=== PATIENT | male | born 1960 | race Caucasian/White ===

== ENCOUNTER → 2020-11-06 09:34 | Outpatient (CLI) | payer OTHER, SELFPAY ==
--- NOTE | ~2020-11-06 | MR_ITS ---
EXAMINATION: MR foot RT wo/w con DATE: 11/06/2020 11:14 INDICATION: Mononeuropathy with right foot pain. TECHNIQUE: Magnetic resonance imaging (MRI) of the right fore/mid foot was performed without and with 18 mL Multihance intravenous contrast. Sequences included axial, sagittal and coronal T1-weighted FS E, sagittal fluid sensitive FSE STIR, axial and coronal [id number] FS FSE, axial T1-weighted FS FSE a nd postcontrast axial, sagittal and coronal [id number] FS FSE. COMPARISON: None FINDINGS: Hallux valgus with mild bunion with mild cystic and hypertrophic change at the dorsal medial aspect o f the head of the first metatarsal. Bone alignment is otherwise normal. No fracture or pathologic mar row replacing process. Mild osteoarthritis at the first metatarsophalangeal joint. Mild marrow edema and enhancement at the plantar aspect of the medial cuneiform which could be related to mild osteoart hritis at the first tarsal metatarsal joint or small erosion at the insertion of a slip of the distal peroneus longus tendon. Otherwise normal bone marrow signal throughout. No fracture or pathologic ma rrow replacing process. The stabilizing ligaments of the medial and lateral ankle as well as the Lisf ranc ligament complex are normal. Small amount of fluid at the intermetatarsal bursa between the head s of the first and second metatarsals consistent with mild bursitis small amount of fluid extending a long the peroneal tendon sheath distal to the level of the lateral malleolus consistent with mild ten osynovitis. And the flexor and extensor tendons of the foot and ankle are otherwise normal. No muscul ar atrophy of abnormal muscle signal of the intrinsic musculature in the forefoot. Nonspecific edema at Kager's fat pad. 2.6 x 1.9 x 0.7 cm ganglion cyst at the posterior aspect of the ankle. Plantar ap oneurosis is normal. IMPRESSION: 1. Mild peroneal tenosynovitis which is in relatively close proximity to the marker indicating the si te of maximal pain is positioned overlying the cuboid at the lateral midfoot. No other etiology ident ified for reported lateral right foot pain. 2. Mild hallux valgus with bunion and mild osteoarthritis of the first metatarsophalangeal joint. 3. Mild intermetatarsal bursitis between the heads of the first and second metatarsals. 4. Nonspecific edema at Kager's fat pad at the posterior calf. 5. Focal marrow edema at the plantar aspect of the medial cuneiform which could be related to mild os teoarthritis at the first tarsal metatarsal joint or an erosion at the insertion of a slip of the per oneus longus tendon. Reviewed, dictated and finalized at location A. IMPRESSION: 1. Mild peroneal tenosynovitis which is in relatively close proximity to the ma rker indicating the site of maximal pain is positioned overlying the cuboid at the lateral midfoot. No other etiology identified for reported lateral right fo ot pain. 2. Mild hallux valgus with bunion and mild osteoarthritis of the first metatars ophalangeal joint. 3. Mild intermetatarsal bursitis between the heads of the first and second meta tarsals. 4. Nonspecific edema at Kager's fat pad at the posterior calf. 5. Focal marrow edema at the plantar aspect of the medial cuneiform which could be related to mild osteoarthritis at the first tarsal metatarsal joint or an e rosion at the insertion of a slip of the peroneus longus tendon.
[2020-11-06 10:33] LABS: Estimated Glomerular Filt Rate > 60
== END ==
PROVIDERS: PCP Family Medicine; Visit Provider Podiatrist Foot & Ankle Surgery
DX: M79.671 Pain in right foot (principal); G57.81 Other specified mononeuropathies of right lower limb; G57.61 Lesion of plantar nerve, right lower limb; M71.21 Synovial cyst of popliteal space [Baker], right knee; M65.871 Other synovitis and tenosynovitis, right ankle and foot
CPT/HCPCS: 73720; A9577

== ENCOUNTER 2023-01-30 07:42 | Outpatient (CLI) | payer OTHER, SELFPAY ==
--- NOTE | ~2023-01-30 | MR_ITS ---
MRI of the lumbar spine Clinical History: Stenosis Technique: Axial T2-weighted images, and sagittal T1-weighted, T2-weighted, and T2 fat-sat images wer e acquired. Findings: There is posterior fusion hardware extending from L4 through L5, with bilateral rods and tr anspedicular screws present. There is associated interbody fusion devices at the L4-L5 and L5-S1 disc spaces. Laminectomy defects present at L5. No acute fracture or subluxation evident. No suspicious b one marrow signal abnormality seen. At L1-L2, there is no disc bulge or herniation. No spinal canal stenosis or neural foraminal narrowin g. At L2-L3, there is minimal disc bulge. No spinal canal stenosis or neural foraminal narrowing. L3-L4, there is mild disc bulge and moderate to advanced facet arthropathy. No maritza central canal st enosis. There is minimal left neural foraminal narrowing, and mild to moderate right neural foraminal narrowing. At L4-L5, there is no disc bulge or herniation. No central canal stenosis. There is mild bilateral ne ural foraminal narrowing. At L5-S1, there is no disc bulge or herniation. No central canal stenosis. There is mild bilateral ne ural foraminal narrowing. Paravertebral soft tissues are unremarkable aside from expected postoperative change. Impression: Posterior and interbody fusion from L4 through S1, as detailed above. Mild degenerative spondylosis, as above. Reviewed, dictated and finalized at [facility]. Impression: Posterior and interbody fusion from L4 through S1, as detailed above. Mild degenerative spondylosis, as above.
== END 2023-01-30 07:43 ==
LOC: MICIMG 07:44
PROVIDERS: PCP Physician Assistant; Visit Provider Physician Assistant
DX: M96.1 Postlaminectomy syndrome, not elsewhere classified (principal); M48.062 Spinal stenosis, lumbar region with neurogenic claudication; Z98.1 Arthrodesis status; M47.896 Other spondylosis, lumbar region
CPT/HCPCS: 72148

== ENCOUNTER 2023-01-30 07:46 | Outpatient (CLI) | payer OTHER, SELFPAY ==
--- NOTE | ~2023-01-30 | MR_ITS ---
MRI of the left shoulder Technique: Axial proton-density fat-sat images, coronal proton density fat-sat and T2 fat-sat images, and sagittal T1-weighted and T2 fat-sat images were acquired. Clinical History: Pain Findings: There is mild AC joint degenerative change. Coracoclavicular, coracoacromial, and coracohum eral ligaments appear intact. There is focal low-grade articular surface partial tear at the distal insertion of the posterior port ion of the supraspinatus tendon, with tear measuring approximately 6 x 7 mm in extent. There is mild tendinosis. Subscapularis tendon is intact with mild tendinosis. Tendon of the long head of the bicep s is intact. No definite labral tear identified. There is mild chondromalacia of the glenohumeral joint. No significant joint effusion seen. There is minimal fluid within the subacromial/subdeltoid bursa. No muscle atrophy or edema. Impression: 6 x 7 mm low-grade linear articular surface partial tear at the distal insertion of the posterior por tion of the supraspinatus tendon. Rotator cuff tendinosis. Minimal subacromial/subdeltoid bursitis. Reviewed, dictated and finalized at location . Impression: 6 x 7 mm low-grade linear articular surface partial tear at the distal insertio n of the posterior portion of the supraspinatus tendon. Rotator cuff tendinosis. Minimal subacromial/subdeltoid bursitis.
== END 2023-01-30 07:47 ==
LOC: MICIMG 07:47
DX: M25.512 Pain in left shoulder (principal); G89.29 Other chronic pain
CPT/HCPCS: 73221

== ENCOUNTER 2023-04-10 10:51 | Outpatient (CLI) | payer OTHER, SELFPAY ==
--- NOTE | ~2023-04-10 | MR_ITS ---
EXAMINATION: MR cervical spine wo con DATE: 04/10/2023 11:31 INDICATION: Left-sided cervical radiculopathy. TECHNIQUE: Magnetic resonance imaging (MRI) of the cervical spine was performed without intravenous c ontrast. COMPARISON: None FINDINGS: Bone alignment is normal. Vertebral body heights are normal. There is mildly decreased disc height at C5-C6 and moderately decreased disc height at C6-C7. The spinal cord signal intensity is n ormal. The following disc levels are specifically discussed: C2-C3: The disc does not extend beyond the endplate margin. There is no uncovertebral joint osteoarth ritis. There is severe bilateral facet joint osteoarthritis. There is mild bilateral neural foraminal stenosis. There is no central canal stenosis. C3-C4: The disc does not extend beyond the endplate margin. There is severe bilateral uncovertebral j oint osteoarthritis. There is severe right and moderate left facet joint osteoarthritis. There is mil d bilateral neural foraminal stenosis. There is no central canal stenosis. C4-C5: There is a central protrusion. There is moderate bilateral uncovertebral joint osteoarthritis. There is severe right and moderate left facet joint osteoarthritis. There is mild bilateral neural f oraminal stenosis. There is mild central canal stenosis. C5-C6: The disc is bulging. There is severe bilateral uncovertebral joint osteoarthritis. There is mi ld right and moderate left facet joint osteoarthritis. There is mild right and moderate left neural f oraminal stenosis. There is mild central canal stenosis with ventral indentation of the spinal cord. C6-C7: The disc is bulging with superimposed left central extrusion. There is severe bilateral uncove rtebral joint osteoarthritis. There is severe bilateral facet joint osteoarthritis. There is mild rig ht and severe left neural foraminal stenosis. There is mild central canal stenosis with ventral inden tation of the spinal cord. There is severe stenosis of left lateral recess. C7-T1: The disc does not extend beyond the endplate margin. There is no uncovertebral joint osteoarth ritis. There is severe bilateral facet joint osteoarthritis. There is mild bilateral neural foraminal stenosis. There is no central canal stenosis. IMPRESSION: 1. Severe spondylosis at C6-C7 and mild to moderate spondylosis at other levels. Reviewed, dictated and finalized at location A. [employer] IMPRESSION: 1. Severe spondylosis at C6-C7 and mild to moderate spondylosis at other levels .
== END 2023-04-10 10:52 ==
LOC: MICIMG 10:54
DX: M75.22 Bicipital tendinitis, left shoulder (principal); M47.22 Other spondylosis with radiculopathy, cervical region
CPT/HCPCS: 72141

== ENCOUNTER 2024-06-21 09:08 | Outpatient (CLI) | payer OTHER, SELFPAY ==
--- NOTE | ~2024-06-21 | MR_ITS ---
EXAMINATION: MR thoracic spine wo con DATE: 06/21/2024 09:54 INDICATION: Pain in thoracic spine. TECHNIQUE: Magnetic resonance imaging (MRI) of the thoracic spine was performed without intravenous c ontrast. COMPARISON: None FINDINGS: There is kyphosis of thoracic spine. There is chronic height loss of T5-T12 vertebral marissa s associated with Schmorl's nodes. There is mildly decreased disc height from T6-T7 through T9-T10. A t T4-T5, there is a central protrusion with mild central canal stenosis. At T6-T7, there is a left ce ntral protrusion with annular fissure, mild central canal stenosis, and ventral indentation of the sp inal cord. There is multilevel facet joint osteoarthritis, severe at a few levels. On the right, ther e is mild neural foraminal stenosis at T1-T2, T5-T6, and T8-T9. On the left, there is moderate neural foraminal stenosis at T1-T2 and mild neural foraminal stenosis at T2-T3, T7-T8, and T8-T9. The spina l cord signal intensity is normal. The conus medullaris is at T12. IMPRESSION: 1. Mild thoracic spondylosis. 2. Thoracic kyphosis. Reviewed, dictated and finalized at location A. OPERATOR
--- NOTE | ~2024-06-21 | MR_ITS ---
EXAMINATION: MR lumbar spine wo con DATE: 06/21/2024 10:04 INDICATION: Lumbago. TECHNIQUE: Magnetic resonance imaging (MRI) of the lumbar spine was performed without intravenous con trast. COMPARISON: Lumbar spine MRI 01/30/2023 FINDINGS: There is 10 degrees dextroscoliosis of lumbar spine. There is 3 mm anterolisthesis of L3 on L4. There are changes of anterior posterior fusion procedures from L4 to S1 with interbody devices a nd pedicle screws. There is mild chronic anterior wedging of T12 vertebral body. There is mildly decr eased disc height at L2-L3 and L3-L4. The distal spinal cord signal intensity is normal. The conus me dullaris is at T12. The following disc levels are specifically discussed: L1-L2: There is a central protrusion. There is mild bilateral facet joint osteoarthritis. There is no neural foraminal stenosis. There is mild central canal stenosis. L2-L3: The disc is bulging. There is mild bilateral facet joint osteoarthritis. There is mild bilater al neural foraminal stenosis. There is mild central canal stenosis. L3-L4: The disc is bulging and has an annular fissure. There is severe bilateral facet joint osteoart hritis. There is mild bilateral neural foraminal stenosis. There is mild central canal stenosis. L4-L5: There is moderate bilateral facet joint hypertrophy. There is mild right and moderate left aj ral foraminal stenosis. There is no central canal stenosis. L5-S1: There is mild bilateral facet joint hypertrophy. There is mild bilateral neural foraminal sten osis. There is no central canal stenosis. IMPRESSION: 1. Mild lumbar spondylosis, stable from 01/30/2023. 2. Anterior and posterior fusion procedures from L4 to S1. Reviewed, dictated and finalized at location A. [employer]
== END 2024-06-21 09:09 | disposition home or self-care (01) ==
LOC: MICIMG 09:10
PROVIDERS: PCP Internal Medicine; Visit Provider Nurse Practitioner Family
DX: M47.814 Spondylosis without myelopathy or radiculopathy, thoracic region (principal); M40.204 Unspecified kyphosis, thoracic region; Z98.1 Arthrodesis status
CPT/HCPCS: 72146; 72148

== ENCOUNTER 2024-09-20 08:26 | Emergency (ER) | payer OTHER, SELFPAY ==
--- NOTE | 2024-09-20 08:28 | ED.EXTPRO ---
HPI - Extremity Problem General Chief complaint: Extremity Problem,Nontraumatic Stated complaint: swelling in arm Time Seen by Provider: 09/20/24 08:28 Source: patient Mode of arrival: ambulatory Limitations: no limitations History of Present Illness HPI Narrative: Mr. Moreno is a 64-year-old male patient presenting to the clinic today with complaints of swelling in his left posterior arm since . He reports he had a Bhumi diabetic monitor on his left posterior arm to check for elevated blood sugars. States he is not diabetic however every time he goes to the doctor he has a spike in his blood sugar. They were doing this to monitor more closely to determine if he needs medications. He states night he woke up and his arm was in pain and the Arlene monitor went flat lined so he removed it. Area knotted, tender, red, and swollen-left posterior upper arm. He denies any fevers, chills, body aches. He denies any shortness of breath or chest pain. Related Data Allergies Allergy/AdvReac Type Severity Reaction Status Date / Time Penicillins Allergy Mild Hives Verified 09/20/24 08:46 rosuvastatin AdvReac Intermediate Joint Pain Verified 09/20/24 08:46 Review of Systems Review of Systems: Pertinent positives per HPI. Patient denies any fever, chills, rash, headache, visual changes, dizziness, cough, runny nose, sore throat, shortness of breath, chest pain, palpitations, nausea, vomiting, diarrhea, constipation, abdominal pain, or any urinary issues. [facility] Family History Family History Father Family history of diabetes mellitus in first degree relative Mother Family history of diabetes mellitus in first degree relative Other Diabetes mellitus Family history of cardiovascular disease Social History Social History Smoking status: Never smoker Alcohol intake: current Comments At the time of my signature, I reviewed and agree with the nursing past medical, surgical, social, and family history. There is no relevant family history pertinent to the patient complaint. Exam Narrative: General: Well-developed, well nourished, in no apparent distress Head: Normocephalic, atraumatic. Cardio: Regular rate and rhythm, s1 and s2 normal, no murmur appreciated. Resp: Clear to auscultation bilaterally, no rhonchi, rales, wheezing or rubs. Musculoskeletal: No deformity, redness, swelling, erythema, and tender to palpation over the left posterior upper arm-indurated area measuring approximately 3 cm x 3 cm, no drainage, grossly normal range of motion, muscle strength strong and equal, peripheral pulse strong, no cyanosis, normal gait and station Course Course Emergency Course: Portions of this record may have been created with voice recognition software. Level of Care: Express Care Visit Vital Signs Vital signs: Vital Signs Temperature 35.8 C L 09/20/24 08:36 Pulse Rate 62 09/20/24 08:36 Respiratory Rate 17 09/20/24 08:36 Blood Pressure 137/81 09/20/24 08:36 Pulse Oximetry 97 09/20/24 08:36 Oxygen Delivery Room Air 09/20/24 08:36 Temperature 35.8 C L 09/20/24 08:36 Pulse Rate 62 09/20/24 08:36 Respiratory Rate 17 09/20/24 08:36 Blood Pressure 137/81 09/20/24 08:36 Pulse Oximetry 97 09/20/24 08:36 Oxygen Delivery Room Air 09/20/24 08:36 Vital signs reviewed MDM - Extremity (Nontraumatic) MDM Narrative Medical decision making narrative: At the time of visit patient is resting comfortably on the exam table. Patient appears to be nontoxic. Plan: I suspect patient has left upper posterior arm cellulitis. Prescription for clindamycin was sent to the pharmacy. Supportive measures were discussed with the patient and they voiced understanding discharge instructions and agrees to treatment plan. Return precautions reviewed Differential Diagnosis Differential diagnosis: Likely herpes zoster, gout, cellulitis, superficial thrombophlebitis, deep venous thrombosis of upper extremity and other (Allergic reaction) Discharge Plan Discharge Clinical Impression: Cellulitis Qualifiers: Site of cellulitis: extremity Site of cellulitis of extremity: upper extremity Laterality: left Qualified Code(s): L03.114 - Cellulitis of left upper limb Patient Disposition: Home Condition: Stable Instructions: Antibiotic Form, Cellulitis (ED) Additional Instructions: Keep area clean and dry May take Tylenol/Motrin as needed for pain or fever Take clindamycin as prescribed May apply cool compress to the affected area to help alleviate pain and swelling Keep left upper arm elevated as much as possible Follow-up with your PCP in 3 days for a recheck Patient Language: Bulgarian Prescriptions: New clindamycin HCl [Cleocin HCl] 300 mg capsule 300 mg PO Q8H 7 Days Qty: 21 0RF Follow-up/Referrals: UNKNOWN,DOCTOR [Non-Staff] - Time of Disposition: 08:47 Quality NIHSS Nursing Documentation ED NIHSS nursing documentation: reviewed/agree
--- OUTSIDE RECORDS SUMMARY | 2024-09-20 08:32 | XMS_ITS | Encounter Summary ---
Author Organization [facility] Health Address [address] [place] [address] Care Team Providers Care Clam Shucking Machine Tender Name Role Phone Unavailable Primary Care Provider Unavailabl e Encounter Details Date Type Department Care Team (Late st Contact Info) Description 11/05/2019 Lab Requisition 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[employer] Gender Identity Not on file Sexual Orientation Not on file Occupation Industry Job Start Date Job End Date [employer] Not on file Not on file Not on file documented as of this encounter Plan of Treatment Not on file documented as of this encounter Procedures Procedure Name Priority Date/Time Associated Diagnosis Comments DERMATOPATHOLOGY Routine 11/04/2019 12:0 0 AM CDT documented in this encounter Results * DERMATOPATHOLOGY (11/04/2019 12:00 AM CDT) Case Report Dermatopathology Report Case: [id number] Authorizing Provider: Ashvin Smith MD Collected: 11/04/2019 12:00 AM Ordering Location: [facility] Derm[facility] Lab Received: 11/05/2019 11:57 AM Pathologist: Dunia Barajas MD Specimen: Skin, left chin 0 9:09 AM CDT DERMATOPATHOLOGY LABORATORY Final Diagnosis Specimen A. SKIN, left chin: DERMAL SCAR (L90.5) PRESENT AT MARGIN (see microscopic description) 0 9:09 AM CDT DERMATOPATHOLOGY LABORATORY Clinical History Recurrent cyst. Path#[id number]. Check margins 0 9:09 AM CDT DERMATOPATHOLOGY LABORATORY Gross Description Specimen A: Received is one formalin filled container labeled with the patient's name and designated left chin. The specimen consists of a 19x8x5 mm piece of skin, inked and bisected. 0 9:09 AM CDT DERMATOPATHOLOGY LABORATORY Microscopic Description Specimen A. SKIN, left chin: There are fibroblasts and collagen bundles oriented parallel to the skin surface with elongated blood vessels, some of which are oriented perpendicular to the skin surface. Scar is present at the base of the specimen. Additional deeper sections were obtained and reviewed. 0 9:09 AM CDT DERMATOPATHOLOGY LABORATORY Disclaimer An external and internal positive and negative controls are appropriate for the histochemical, immunohistochemical and immunofluorescence stain(s) in this case (if any), except where stated explicitly. The performance characteristics of the stain(s) cited in this report were developed and its performance characteristic determined by the Dermatopathology Laboratory at [facility], directed by Dr. Yasir Bond. These tests need not be, and therefore are not, approved by the [place] Food and Drug Administration. The tests are used for clinical purposes. Billing Codes Specimen Charges Stain Charges 96496 1 0 9:09 AM CDT DERMATOPATHOLOGY LABORATORY Embedded Images 0 9:09 AM CDT DERMATOPATHOLOGY LABORATORY Pathology/Cytolog y TISSUE SPECIMEN FROM SKIN / Unknown 11/04/2019 11/05/2019 11:57 AM CDT us Ashvin Smith MD LAB - PATHOLOGY/CYTOLOGY ORDER BEBETO Final Result DERMATOPATHOLOGY LABORATORY [facility] - Department of Dermatology Data Operations Director [place] [id number] [place] [address] documented in this encounter Visit Diagnoses Not on filedocumented in this encounter
--- OUTSIDE RECORDS SUMMARY | 2024-09-20 08:32 | XMS_ITS | Encounter Summary ---
Author Organization [facility] Health Address [address] [place] [address] Care Team Providers Care Chief Cardiopulmonary Technologist Name Role Phone Unavailable Primary Care Provider Unavailabl e Encounter Details Date Type Department Care Team (Late st Contact Info) Description 01/01/2022 Lab Requisition [facility] DermPath Lab [address] [place] [phone] Ashvin Smith MD [address] [place] [address] Social History Tobacco Use Types Packs/Day Years Used Date Smoking Tobacco: Never Alcohol Use Standard Drinks/Week Comments Yes 0 (1 standard drink = 0.6 oz pur e alcohol) Socially Sex and Gender Information Value Date Recorded Sex Assigned at Not on file 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 Gender Identity Not on file Sexual Orientation Not on file Occupation Industry Job Start Date Job End Date [place] Not on file Not on file Not on file documented as of this encounter Plan of Treatment Not on file documented as of this encounter Procedures Procedure Name Priority Date/Time Associated Diagnosis Comments DERMATOPATHOLOGY Routine 12/28/2021 3:33 AM CDT documented in this encounter Results * DERMATOPATHOLOGY (12/28/2021 3:33 AM CDT) Case Report Dermatopathology Report Case: [id number] Authorizing Provider: Ashvin Smith MD Collected: 12/28/2021 03:33 AM Ordering Location: [facility] DermPath Lab Received: 01/01/2022 06:44 AM Pathologist: Melissa Goldman MD Specimen: Skin, left post neck 2 4:46 PM CDT DERMATOPATHOLOGY LABORATORY Final Diagnosis Specimen A. 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 Path#[id number] 2 4:46 PM CDT DERMATOPATHOLOGY LABORATORY Gross Description Specimen A: Received is one formalin filled container labeled with the patient's name and designated left post neck. The specimen consists of a shave biopsy measuring 7x5x1 mm. Jar 0. 4:46 PM CDT DERMATOPATHOLOGY LABORATORY Microscopic Description Specimen A. SKIN, left post neck: There is a dome-shaped portion of skin with psoriasiform epidermal hyperplasia, compact hyperkeratosis, and fibrosis of the papillary dermis associated with a superficial perivascular lymphohistiocytic infiltrate. A focal erosion is present. Additional deeper sections were obtained and reviewed. 2 4:46 PM CDT DERMATOPATHOLOGY LABORATORY Disclaimer An external and internal positive and negative controls are appropriate for the histochemical, immunohistochemical and immunofluorescence stain(s) in this case (if any), except where stated explicitly. The performance characteristics of the stain(s) cited in this report were developed and its performance characteristic determined by the Dermatopathology Laboratory at [facility], directed by Dr. Yasir Bond. These tests need not be, and therefore are not, approved by the [place] Food and Drug Administration. The tests are used for clinical purposes. Billing Codes Specimen Charges Stain Charges 96401 1 2 4:46 PM CDT DERMATOPATHOLOGY LABORATORY Embedded Images 2 4:46 PM CDT DERMATOPATHOLOGY LABORATORY Pathology/Cytolo gy TISSUE SPECIMEN FROM SKIN / Unknown 12/28/2021 3:33 AM CDT 01/01/2022 6:44 AM CDT us Ashvin Smith MD LAB - PATHOLOGY/CYTOLOGY ORDER BEBETO Final Result DERMATOPATHOLOGY LABORATORY [facility] - Department of Dermatology [facility] [phone] documented in this encounter Visit Diagnoses Not on filedocumented in this encounter
--- OUTSIDE RECORDS SUMMARY | 2024-09-20 08:32 | XMS_ITS | Encounter Summary ---
Author Organization [facility] Address [address] [place] [address] Care Team Providers Care Bar Machine Operator Multiple Spindle Name Role Phone Conner Carter MD Primary Care Provider [phone] Juliano Prajapati MD Unavailable [phone] Sherwin Venegas MD Unavailable [phone] Stalin Escalante MD Unavailable [phone] Jayelen Negron PA-C Unavailable [phone] Peter Holt DO Primary Care Provider Glo Damon [facility] Primary Care Provid er Scott Tapia MD Primary Care Provider [phone] Encounter Details Date Type Department Care Team (Late st Contact Info) Description 03/17/[address] [facility] One Day Services [address] [id number] Conner Carter MD [address] [place] [address] Social History Tobacco Use Types Packs/Day Years Used Date Smoking Tobacco: Never Smokeless Tobacco: Never Alcohol Use Standard Drinks/Week Comments Yes 0 (1 standard drink = 0.6 oz pur e alcohol) socially AUDIT-C Answer Date Recorded Frequency of Alcohol Consumption Monthly or less 03/25/2018 Average Number of Drinks Not on file 11/14/2 018 Frequency of Binge Drinking Not on file 03/12 PHQ-2 Answer Date Recorded PHQ-2 Score - If the patient scores above 3, please move on to questions 3-9 0 12/30/2019 Sex and Gender Information Value Date Recorded Sex Assigned at Not on file Legal Sex Male 11:59 PM CDT Gender Identity Not on file Sexual Orientation Not on file COVID-19 Exposure Response Date Recorded In the last month, have you been in contact with someone who was confirmed or suspected to have Coronavirus / COVID-19? No / Unsure 03/17/2020 2:16 PM HONEY GRADER AND BLENDER documented as of this encounter Plan of Treatment Not on file documented as of this encounter Results * PRE-SURGICAL/PRE-PROCEDURE CORONAVIRUS (COVID 19) (03/21/2020 9:23 AM HONEY GRADER AND BLENDER) CORONAVIRUS SARS COV 2 PCR (RESP) NOT DETECTED NOT DETECTED 03/22/2020 5:55 PM HONEY GRADER AND BLENDER [facility] Comment: A Not Detected (negative) test result for this test means that SARS- CoV-2 RNA was not present in the specimen above the limit of detection. A negative result does not rule out the possibility of COVID-19 and should not be used as the sole basis for treatment or patient management decisions. If COVID-19 is still suspected, based on exposure history together with other clinical findings, re-testing should be considered in consultation with public health authorities. Laboratory test results should always be considered in the context of clinical observations and epidemiological data in making a final diagnosis and patient management decisions. Please review the Fact Sheets and FDA authorized labeling available for health care providers and patients using the following websites: https://www.[employer].Zomato/home/Covid-19/HCP/NAAT/fact-sheet2 https://www.[employer].Zomato/home/Covid-19/Patients/NAAT/ fact-sheet2 This test has been authorized by the FDA under an Emergency Use Authorization (EUA) for use by authorized laboratories. Due to the current public health emergency, [employer] is receiving a high volume of samples from a wide variety of swabs and media for COVID-19 testing. In order to serve patients during this public health crisis, samples from appropriate clinical sources are being tested. Negative test results derived from specimens received in non-commercially manufactured viral collection and transport media, or in media and sample collection kits not yet authorized by FDA for COVID-19 testing should be cautiously evaluated and the patient potentially subjected to extra precautions such as additional clinical monitoring, including collection of an additional specimen. Methodology: Nucleic Acid Amplification Test (NAAT) includes RT-PCR or TMA Additional information about COVID-19 can be found at the [employer] website: www.[employer].Zomato/Covid19. Test performed at [facility] [place] [id number] [place] [phone] Director: JOHN JOE DO,MPH FIRST TEST YES 03/21/2020 9:24 AM HONEY GRADER AND BLENDER [facility] EMPLOYED IN HEALTHCARE NO 03/21/2020 9:24 AM [facility] SYMPTOMATIC DEFINED BY CDC NO 03/21/2020 9:24 AM HONEY GRADER AND BLENDER [facility] DATE OF SYMPTOM ONSET UNKNOWN 03/21/2020 9:33 AM HONEY GRADER AND BLENDER [facility] HOSPITALIZATION STATUS NO 03/21/2020 9:24 AM HONEY GRADER AND BLENDER [facility] PATIENT IN ICU NO 03/21/2020 9:24 AM HONEY GRADER AND BLENDER [facility] RESIDENT OF [facility] NO 03/21/2020 9:24 AM [facility] NOT 03/21/2020 9:33 AM HONEY GRADER AND BLENDER [facility] PATIENT'S RACE WHITE OR 03/21/2020 9:24 AM HONEY GRADER AND BLENDER [facility] ETHNICITY NONHISPANIC 03/21/2020 9:24 AM HONEY GRADER AND BLENDER [facility] SOURCE (QST) NASOPHARYNGEAL SWAB 03/21/2020 9:24 AM [facility] NASOPHARYNGEAL SWAB / Unknown 03/21/2020 9:23 AM HONEY GRADER AND BLENDER Conner Carter MD MICROBIOLOGY - GENERAL ORDERA BLES Final Result [facility] [address] [place] [address], [facility] [address] [place] [address], documented in this encounter Visit Diagnoses Diagnosis Pre-op testing- Primary Preoperative examination, unspecified documented in this encounter Additional Health Concerns Infection Onset Date Last Indicated Resolved Time COVID-19 Rule Out 03/21/2020 03/21/2020 03/22/2020 5:56 PM HONEY GRADER AND BLENDER COVID-19 Rule Out 04/02/2020 04/02/2020 04/03/2020 1:46 PM HONEY GRADER AND BLENDER COVID-19 Rule Out 06/30/2020 06/30/2020 07/01/2020 9:21 AM HONEY GRADER AND BLENDER documented as of this encounter Care Teams Bar Machine Operator Multiple Spindle Relationship Specialty Start Date End Date Conner Carter MD PCP - General 06/25/16 10/01/21 Peter Holt DO [address] [place] [address] PCP - General FAMILY PRACTICE 10/02/21 08/17/23 Glo Damon, LICENSED LOAN OFFICER- [address] [place] [address] PCP - General Nurse Practitioner Family 08/18/2311/09 Scott Tapia MD [address] [facility] [address] [place] [address] PCP - General INTERNAL MEDICINE 11/28/23 Juliano Prajapati MD SURGERY 03/20/18 Sherwin Venegas MD [address] [place], [place] [phone] Referring Physician OTOLARYNGOLOGY 03/20/18 Stalin Escalante MD [address] [place] [phone] FINE CHEMICALS OPERATOR 03/20/18 Jayleen Negron, PAThiernoC [address] [place] [address] PHYSICIAN BOX TENDER 03/25/18 Dr. Tommie Perez GASTROENTEROLOGY 03/20/18 documented as of this encounter
--- OUTSIDE RECORDS SUMMARY | 2024-09-20 08:32 | XMS_ITS | Encounter Summary ---
Author Organization [facility] Address [address] [place] [address] Care Team Providers Care Head Of Operation And Logistics Name Role Phone Conner Carter MD Primary Care Provider [phone] Juliano Prajapati MD Unavailable [phone] Sherwin Venegas MD Unavailable [phone] Stalin Escalante MD Unavailable [phone] Jayleen Negron PA-C Unavailable [phone] Peter Holt DO Primary Care Provider Glo Damon [facility] Primary Care Provid er Scott Tapia MD Primary Care Provider [phone] Encounter Details Date Type Department Care Team (Late st Contact Info) Description 06/27/2020 Prep for Procedure [facility] One Day Services [address] [place], [place] [id number] [place] [address] [facility] [address] [place] [address] Social History Tobacco Use Types Packs/Day Years [...] have Coronavirus / COVID-19? No / Unsure 06/30/2020 12:00 PM DOUGHNUT ICER documented as of this encounter Plan of Treatment Not on file documented as of this encounter Results * MRSA SCREENING (06/30/2020 12:09 PM DOUGHNUT ICER) SPEC DESCRIPTION NASAL 06/30/2020 12:01 PM DOUGHNUT ICER [facility] SPECIAL REQUESTS NO SPECIAL REQUEST 06/30/2020 12:01 PM DOUGHNUT ICER [facility] CULTURE RESULT NO METHICILLIN RESISTANT STAPH AUREUS ISOLATED 07/01/2020 12:21 PM DOUGHNUT ICER [facility] SPECIMEN FROM INTERNAL NOSE / Unknown 06/30/2020 12:09 PM DOUGHNUT ICER 06/30/2020 12:10 PM DOUGHNUT ICER Bill Cornejo MD MICROBIOLOGY - GENERAL ORDERABLE S Final Result [facility] [address] [place] [address], * PRE-SURGICAL/PRE-PROCEDURE CORONAVIRUS (COVID 19) (06/30/2020 12:09 PM DOUGHNUT ICER) CORONAVIRUS SARS COV 2 PCR (RESP) NOT DETECTED NOT DETECTED 07/01/2020 9:21 AM DOUGHNUT ICER [facility] Comment: A Not Detected (negative) test result [...] providers and patients using the following websites: https://www.[employer].InsuranceLibrary.com/home/Covid-19/HCP/QuestIVD/fact- sheet.html https://www.[employer].InsuranceLibrary.com/home/Covid-19/Patients/ QuestIVD/fact-sheet.html This test has been authorized by the FDA under an Emergency Use Authorization (EUA) for use by authorized laboratories. Due to the current public health emergency, [employer] is receiving a high volume of samples [...] about COVID-19 can be found at the [employer] website: www.[employer].InsuranceLibrary.com/Covid19. Test performed at [facility] [place] [address] [place] [address] Director: JOHN JOE DO,MPH FIRST TEST UNKNOWN 06/30/2020 12:01 PM [facility] EMPLOYED IN HEALTHCARE NO 06/30/2020 12:01 PM [facility] SYMPTOMATIC DEFINED BY CDC NO 06/30/2020 12:01 PM [facility] DATE OF SYMPTOM ONSET UNKNOWN 06/30/2020 12:18 PM [facility] HOSPITALIZATION STATUS NO 06/30/2020 12:01 PM [facility] PATIENT IN ICU NO 06/30/2020 12:01 PM DOUGHNUT ICER [facility] RESIDENT OF [facility] NO 06/30/2020 12:01 PM DOUGHNUT ICER [facility] UNKNOWN 06/30/2020 12:18 PM DOUGHNUT ICER [facility] PATIENT'S RACE WHITE OR 06/30/2020 12:01 PM DOUGHNUT ICER [facility] ETHNICITY NONHISPANIC 06/30/2020 12:01 PM DOUGHNUT ICER [facility] SOURCE (QST) NASOPHARYNGEAL SWAB 06/30/2020 12:01 PM DOUGHNUT ICER [facility] NASOPHARYNGEAL SWAB / Unknown 06/30/2020 12:09 PM DOUGHNUT ICER us Bill Cornejo MD MICROBIOLOGY - GENERAL ORDERABLE S Final Result Performing Organization Address City/State/[facility] Co de Phone Number [facility] [address] [place] [address], [place] [phone] [facility] [id number] [place] [address], documented in this encounter Visit Diagnoses Diagnosis Preop testing- Primary Preoperative examination, unspecified documented in this encounter Additional Health Concerns Infection Onset Date Last Indicated Resolved Time COVID-19 Rule Out 06/30/2020 06/30/2020 07/01/2020 9:21 AM DOUGHNUT ICER documented as of this encounter Care Teams Head Of Operation And Logistics Relationship Specialty Start Date End Date Conner Carter MD PCP - General 06/25/16 10/01/21 Peter Holt DO [address] [place] [address] PCP - General FAMILY PRACTICE 10/02/21 08/17/23 Glo Damon FNP- [address] [place] [address] PCP - General Nurse Practitioner Family 08/18/2311/09 Scott Tapia MD [address] [facility] [address] [place] [address] PCP - General INTERNAL MEDICINE 11/28/23 Juliano Prajapati MD SURGERY 03/20/18 Sherwin Venegas MD [address] [place], [place] [address] Referring Physician OTOLARYNGOLOGY 03/20/18 Stalin Escalante MD [address] [place] [address] SUSTAINABILITY PROJECT MANAGER 03/20/18 Jayleen Negron, PA-C [address] [place] [address] PHYSICIAN FISH AND GAME CLUB MANAGER 03/25/18 Dr. Tommie Perez GASTROENTEROLOGY 03/20/18 documented as of this encounter
--- OUTSIDE RECORDS SUMMARY | 2024-09-20 08:32 | XMS_ITS | Encounter Summary ---
Author Organization [facility] Address [address] [place] [address] Care Team Providers Care Supplies Packer Name Role Phone Conner Carter MD Primary Care Provider [phone] Juliano Prajapati MD Unavailable [phone] Sherwin Venegas MD Unavailable [phone] Stalin Escalatne MD Unavailable [phone] Jayleen Negron PA-C Unavailable [phone] Peter Holt DO Primary Care Provider Glo Damon [facility] Primary Care Provid er Scott Tapia MD Primary Care Provider [phone] Encounter Details Date Type Department Care Team (Late st Contact Info) Description 2020 Prep for Procedure [facility] One Day Services [address] [place] [address] Tommie Perez MD [address] [id number] Social History Tobacco Use Types Packs/Day Years Used Date Smoking Tobacco: Never Smokeless Tobacco: Never Alcohol Use Standard Drinks/Week Comments Yes 0 (1 standard drink = 0.6 oz pur e alcohol) socially AUDIT-C Answer Date Recorded Frequency of Alcohol Consumption Monthly or less 03/25/2018 Average Number of Drinks Not on file 018 Frequency of Binge Drinking Not on [...] have Coronavirus / COVID-19? No / Unsure 04/03/2020 11:45 AM ROUNDER AND BACKER documented as of this encounter Plan of Treatment Not on file documented as of this encounter Results * PRE-SURGICAL/PRE-PROCEDURE CORONAVIRUS (COVID 19) (04/02/2020 9:18 AM ROUNDER AND BACKER) CORONAVIRUS SARS COV 2 PCR (RESP) NOT DETECTED NOT DETECTED 04/03/2020 1:46 PM ROUNDER AND BACKER [facility] Comment: A [...] providers and patients using the following websites: https://www.[employer] Holding/home/Covid-19/HCP/QuestIVD/fact- sheet.html https://www.[employer]/home/Covid-19/Patients/ QuestIVD/fact-sheet.html This test has been authorized by the FDA under an Emergency Use Authorization (EUA) for use by authorized laboratories. Due to the current public health emergency, [employer] is receiving a high volume of samples [...] about COVID-19 can be found at the [employer] website: www.[employer]/Covid19. Test performed at [facility] [place] [address] [facility] [place] [address] Director: JOHN JOE DO,MPH FIRST TEST NO 04/02/2020 9:16 AM [facility] EMPLOYED IN HEALTHCARE NO 04/02/2020 9:16 AM [facility] SYMPTOMATIC DEFINED BY CDC NO 04/02/2020 9:16 AM [facility] DATE OF SYMPTOM ONSET UNKNOWN 04/02/2020 9:41 AM [facility] HOSPITALIZATION STATUS NO 04/02/2020 9:16 AM [facility] PATIENT IN ICU NO 04/02/2020 9:16 AM [facility] RESIDENT OF [facility] NO 04/02/2020 9:16 AM [facility] NOT 04/02/2020 9:41 AM [facility] PATIENT'S RACE WHITE OR 04/02/2020 9:16 AM [facility] ETHNICITY NONHISPANIC 04/02/2020 9:16 AM [facility] SOURCE (QST) NASOPHARYNGEAL SWAB 04/02/2020 9:16 AM [facility] NASOPHARYNGEAL SWAB / Unknown 04/02/2020 9:18 AM ROUNDER AND BACKER Tommie ePrez MD MICROBIOLOGY - GENERAL ORDERABLE S Final Result [facility] [address] [place] [address], [employer] [facility] [address] [place] [address], documented in this encounter Visit Diagnoses Diagnosis Preop testing- Primary Preoperative examination, unspecified documented in this encounter Additional Health Concerns Infection Onset Date Last Indicated Resolved Time COVID-19 Rule Out 04/02/2020 04/02/2020 04/03/2020 1:46 PM ROUNDER AND BACKER COVID-19 Rule Out 06/30/2020 06/30/2020 07/01/2020 9:21 AM ROUNDER AND BACKER documented as of this encounter Care Teams Supplies Packer Relationship Specialty Start Date End Date Conner Carter MD PCP - General 06/25/16 10/01/21 Peter Holt DO [address] [place] [phone] PCP - General FAMILY PRACTICE 10/02/21 08/17/23 Glo Damon, [facility]- [address] [place] [address] PCP - General Nurse Practitioner Family 08/18/2311/09 Scott Tapia MD [address] [place] [address] [address] [place] [address] PCP - General INTERNAL MEDICINE 11/28/23 Juliano Prajapati MD SURGERY 03/20/18 Sherwin Venegas MD [address] [place] [address] Referring Physician OTOLARYNGOLOGY 03/20/18 Stalin Escalante MD [address] [place] [address] INSTITUTIONAL CUSTODIAN 03/20/18 Jayleen Negron PA-C [address] [place] [address] PHYSICIAN INFLATED BALL MOLDER 03/25/18 Dr. Tommie Perez GASTROENTEROLOGY 03/20/18 documented as of this encounter
--- OUTSIDE RECORDS SUMMARY | 2024-09-20 08:32 | XMS_ITS | Data Portability ---
Author Organization [place] - [facility] OFFICE Address [address] [place] [address] Care Team Providers Care Financial Operations Analyst Name Role Phone KENZIENATALIE BARRETT Primary Care Provider Assessment No assessment recorded. Plan of Treatment Reminders Order Date Submit Date Provider Last Modified By Organization Details Last Modified Time Details Appointments ESTABLISH ED PATIENT DETAILED 2024 08:30A M Eliezer Tovar i, MD Not available Not available Not available Lab None recorded. Referral None recorded. Procedures None recorded. Surgeries None recorded. Imaging None recorded. Medication Orders Crestor 10 mg tablet 2023 024 [facility], [address], [address], 11/08/2023 10:52:46 Patient TargetsNo targets recorded. Patient Instructions Encounter Date Encounter Id Patient Instructions Last Modified By Organization Details Last Modified Time 11/08/2023 [id number] Weight loss 20 pounds Exercise advised Low cholesterol diet advised Low sodium diet advised. [email or web address] Not available 11/08/2023 10:52:47 12/06/2023 [id number] Exercise advised Low cholesterol diet advised Low sodium diet advised. [email or web address] Not available 12/06/2023 09:20:02 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 None Reported. Results Created Date Observation Date Name Description Value Unit Range Abnormal Flag Note LastModifiedBy Organization Detail LastModifiedTime 11/11/19 24 09/10/2023 lindy parkgr am No observ ation record ed. Not Available 2023 10:26:48 11/11/19 24 07/19/2023 CT, angio gram, coron beata arter ies, w/ contr ast No observ ation record ed. Not Available 2023 10:30:30 11/29/19 24 11/25/2023 exerc ise stres s test No observ ation record ed. Not Available 2023 14:54:59 05/26/19 25 05/25/2024 elect alexei parkgr am No observ ation record ed. Not Available 2024 10:20:11 Result Notes None recorded. Problems Name Problem SNOMED Code Status Onset Date Resolution Date Notes Provider Name and Address Organization Details Recorded Time Benign hypertensio n 53070487 Active 2023 Vero Kaur null, [place] - [facility] 4 09:04:44 Obstructive sleep apnea of adult 2523116038026 Active 2023 Vero Kaur [place], [place] - [facility] 4 09:04:59 Family history of diabetes mellitus 356219407 Active 2023 Vero K[place] - [facility] 4 09:03:07 Lumbago with sciatica 376155668 Active 2023 Vero Mesto [place] - [facility] 4 09:03:08 Mixed hyperlipide denice 332226746 Active 2023 Vero Mesto [place] [facility] 4 09:04:54 Chronic low back pain 470704487 Active 2023 Vero Kaur [place] [facility] 4 09:04:49 Prostate specific antigen above reference range 401860308 Active 2023 Vero Millerto null[place] - [facility] 4 09:03:08 Hypothyroid ism 91028937 Active 2023 Vero [place] [facility] 4 09:04:52 Statin not tolerated 984688328 Active 2023 Vero [place] [facility] 4 09:03:08 Hypogonadis m 87448316 Active 2023 Vero Kaur [place], [place] - [facility] 4 09:03:08 Coronary arterioscle rosis 66507974 Active 2023 [facility], [facility] 4 09:03:08 Liver enzymes level above reference range 497621439 Active 2023 Pham Mes null, [facility] 4 09:03:08 Insulin resistance 270233562 Active 2023 Pham [facility], [facility] 4 09:03:08 Problem Notes None recorded. Procedures Surgical History None recorded. Imaging Results Imaging Date Name Status LastModified by Organization Details LastModified Time 09/10/2023 electrocardiogram completed Informa tion not available 11/11/2023 10:26:48 07/19/2023 CT, angiogram, coronary arteries, w/ contrast completed [email or web address] Information not available 11/11/2023 10:30:30 11/25/2023 [email or web address]ation not available 11/29/2023 14:54:59 05/25/2024 electrocardiogram completed [email or web address] Informa tion not available 05/26/2024 10:20:11 Procedure Notes None recorded. Medical Equipment None Reported. Allergies Allergen ID Allergen Name Allergen Category Reaction Reaction Severity Criticality Documentation Date Start Date Code Code System Note Provider Name and Address Organization Details Recorded Time 94398 Product containin g penicilli n (product) medicatio n rash Not available Not available 11/06/2023 76221 8001 [facility]ED [facility] 4 09:02:46 26242 mold extract medicatio n rash Not available Not available 11/06/2023 06202 8 RxNorm [facility], [facility] 4 09:02:46 56554 Product containin g 3-hydroxy -3-methyl glutaryl- coenzyme A reductase inhibitor (product) medicatio n myalgias (muscle pain) Not available Not available 11/06/2023 92008 009 SNOMED Pham [facility], [facility] 4 09:02:46 Medications Name Sig Start Date Stop Date Status Note LastModified by Organization Details LastModified Time metformin 500 mg tablet TAKE 1 TABLET BY MOUTH TWICE DAILY WITH MORNING & PM MEALS active Not Available Not Available No t Available anastrozole 1 mg tablet active Not Available Not Available Not Available potassium chloride ER 10 mEq capsule,ext ended release active Not Available Not Available Not Available clindamycin HCl 300 mg capsule TAKE 1 TABLET BY MOUTH FOUR TIMES DAILY 09/09 completed Not Available Not Available Not Available naltrexone 50 mg tablet TAKE 1 TABLET BY MOUTH DAILY FOR 18 DAYS active Not Available Not Available No t Available ondansetron HCl 4 mg tablet TAKE 1 CAPLET BY MOUTH EVERY 4-6 HOURS DAILY NEEDED. 09/09 completed Not Available Not Available Not Available metronidazo le 500 mg tablet TAKE 1 TABLET BY MOUTH TWICE DAILY UNTIL FINISHED. 09/09 completed Not Available Not Available Not Available levothyroxi ne 75 mcg tablet TAKE 1 TABLET BY MOUTH IN EVERY MORNING ON EMPTY STOMACH X 30 MINTUES active Not Available Not Available No t Available oxycodone-a cetaminophe n 5 mg-325 mg tablet 09/09 completed Not Available Not Available Not Available amitriptyli ne 10 mg tablet TAKE 2 TABLETS BY MOUTH ONCE DAILY active Not Available Not Available No t Available gemfibrozil 600 mg tablet active Not Available Not Available Not Available testosteron e cypionate 200 mg/mL intramuscul ar oil active Not Available Not Available Not Available oxycodone-a cetaminophe n 7.5 mg-325 mg tablet TAKE 1/2 - 1 TABLET BY MOUTH EVERY 4-6 H NEEDED PAIN, MAX 4 TABS PER DAY 09/09 completed Not Available Not Available Not Available methylpredn isolone 4 mg tablets in a dose pack TAKE 6 TABLETS BY MOUTH ON DAY 1 THEN DECREASE BY 1 TABLET EACH DAY UNTIL GONE 09/09 completed Not Available Not Available Not Available doxazosin 2 mg tablet 1 tablet daily active Not Available Not Available No t Available rosuvastati n 10 mg tablet TAKE 1 TABLET BY MOUTH ONCE DAILY active Not Available Not Available No t Available omega-3 acid ethyl esters 1 gram capsule 09/09 completed Not Available Not Available Not Available pregabalin 100 mg capsule TAKE 1 CAPSULE BY MOUTH ONCE DAILY IN THE MORNING AND 2 IN THE EVENING active Not Available Not Available No t Available chlorhexidi ne gluconate 0.12 % mouthwash RINSE MOUTH WITH 15ML (1 CAPFUL) FOR 30 SECONDS MORNING AND PM AFTER TOOTHBRUS GRISEL. EXPECTORA TE AFTER RINSING, DO NOT SWALLOW 09/09 completed Not Available Not Available Not Available magnesium 12/03 completed Not Available Not Available Not Available fenofibrate nanocrystal lized 48 mg tablet 1 tablet every other day active Not Available Not Available No t Available Metanx 2 mg-3 mg-35 mg tablet Take 1 tablet every day by oral route as directed. active Not Available Not Available No t Available Vascepa 1 gram capsule Take 1 capsule every day by oral route. active Not Available Not Available No t Available Magnesium (oxide/AA chelate) 150mg-2x daily active Not Available Not Available No t Available Trulicity 3 mg/0.5 mL subcutaneou s pen injector INJECT 3MG SUBCUTANE OUSLY ONCE EVERY WEEK 09/09 completed Not Available Not Available Not Available Zepbound 10 mg/0.5 mL subcutaneou s pen injector active Not Available Not Available Not Available Zepbound 5 mg/0.5 mL subcutaneou s pen injector active Not Available Not Available Not Available Zepbound 2.5 mg/0.5 mL subcutaneou s pen injector active Not Available Not Available Not Available Zepbound 15 mg/0.5 mL subcutaneou s pen injector active Not Available Not Available Not Available Zepbound 7.5 mg/0.5 mL subcutaneou s pen injector active Not Available Not Available Not Available Vitals Date Recorded Body height Body mass index (BMI) Body weight Heart rate Oxygen saturation Oxygen saturation in Arterial blood by Pulse oximetry Systolic blood pressure Diastolic blood pressure Provider Name and Address Organization Details Last Updated DateTime 4 177.8 cm 31 kg/m2 59178.9 5 g 51 /min 92 % 92 % 127 mm[Hg] 81 mm[Hg] Angela Knight [place] - [facility] 4 10:31:44 Date Recorded Body height Body mass index (BMI) Body weight Heart rate Oxygen saturation Oxygen saturation in Arterial blood by Pulse oximetry Systolic blood pressure Diastolic blood pressure Provider Name and Address Organization Details Last Updated DateTime 4 177.8 cm 30.9 kg/m2 13009.5 1 g 65 /min 98 % 98 % 142 mm[Hg] 82 mm[Hg] Aylin Marquez [facility] 4 09:04:49 Date Recorded Body height Body mass index (BMI) Body weight Heart rate Oxygen saturation Oxygen saturation in Arterial blood by Pulse oximetry Systolic blood pressure Diastolic blood pressure Provider Name and Address Organization Details Last Updated DateTime 5 177.8 cm 28.5 kg/m2 22550.4 4 g 60 /min 97 % 97 % 144 mm[Hg] 93 mm[Hg] Roslyn Dove [facility] 5 11:56:40 Social History Question Answer Notes LastModified by [employer] Details LastModified Time Tobacco Smoking Status Never Smoker Angela Eugene jansen [facility] 11/08/2023 10:29:08 What Is Your Relationship Status? esto Information not available 11/06/2023 Sex: Unknown Functional Status Question Answer Note LastModified by [employer] Details LastModified Time Do you use any illicit or recreational drugs? No Information not available 11/08/2023 What is your level of alcohol consumption? None Information not available 11/08/2023 Mental Status None recorded. Family History Relationship Description Onset Age of this Age Resolved Age Notes LastModified by Organization Details LastModified Time Father Diabetes mellitus 82 [email or web address] Not available 2023 09:09:34 Father Heart disease Not available 2023 10:23:32 Mother Diabetes mellitus 80 esto Not available 2023 09:09:46 Notes:irregular heart beat - father Medical History Condition Response Thyroid Disease Y High Cholesterol Y Sleep Apnea Y Hypertension Y Immunizations Vaccine Type Date Status Note Provider Nam e and Address Organization Details Recorded Time influenza, unspecified formulation 02/10/2020 completed Vero jansen [facility] 11/06/2023 09:03:14 Td(adult) unspecified formulation 05/12/2015 completed Vero jansen [facility] 11/06/2023 09:03:14 Past Encounters Encounter ID Performer Location Encounter Start Date Encounter Closed Date Diagnosis/Indication Diagnosis SNOMED-CT Code Diagnosis ICD10 Code Diagnosis Note [id number] Eliezer Aguirre MD [place] [id number] 11/08/2023 09:38:05 11/08/2023 10:57:38 Coronary arteriosclerosis 72482270 I25.10 Treadmill Myoview Stress test, has high [place] Risk score. Has Known CAD, or CAD risk equivalent . To look for any ischemia. Benign hypertension 1072 5009 I10 Mixed hyperlipidemia 267 620667 E78.2 LDL 178 Obstructiv e sleep apnea of adult 3742201680 103 G47.33 Hypothyroidism 34588809 E03.9 [id number] Eliezer Aguirre MD [place] OFFICE [facility] [place] [address] 12/06/2023 08:57:07 12/06/2023 09:24:31 Coronary arteriosclerosis 02149181 I25.10 Had Negative stress test on 11/25/23 with Normal LV systolic function. Exercise tolerance: Good. LVEF: 53%. Benign hypertension 1072 5009 I10 Mixed hyperlipidemia 267 490798 E78.2 LDL 178 , Needs to keep LDL less than 70, and HDL more than 40Will get fasting lipids for follow up Obstructiv e sleep apnea of adult 1876819377 103 G47.33 on Cpap Hypothyroidism 73395568 E03.9 [id number] Eliezer Aguirre MD [place] OFFICE [facility] [place] [address] 05/25/2024 11:05:03 05/25/2024 12:15:24 Coronary arteriosclerosis 93851693 I25.10 Had Negative stress test on 11/25/23 with Normal LV systolic function. Exercise tolerance: Good. LVEF: 53%. Benign hypertension 1072 5009 I10 Mixed hyperlipidemia 267 960914 E78.2 LDL 178 , Needs to keep LDL less than 70, and HDL more than 40Will get fasting lipids for follow up Obstructiv e sleep apnea of adult 6489857788 103 G47.33 on Cpap Hypothyroidism 06167732 E03.9 Health Concerns Section Related Observation LastModified by Organization Detai ls LastModified Time None Recorded Concern Status LastModified by Organization Details LastModified Time None Recorded Advance Directives Directive None Recorded Payers Insurance Date Sequence Insurance Name Policy Number Policy Aponte Covered Member ID Aponte Member ID Guarantor Name 05/22/2024 1 [employer] (POS) [id number] Jordyn Moreno [id number] Guillermo Moreno Notes Date Note Type Note Provider Name and Address Organization Details Recorded Time 4 text/html 11/08/23CC: Coronary atherosclerosisDatom MORENO is a 63 years-old white Male with h/o Hypertension, coronary arteriosclerosis, hypothyroidism, obstructive sleep apnea of adult , hyperlipidemia, and statin not tolerated was referred for cardiac evaluation due to coronary atherosclerosis. And elevated calcium scoring Today reports:no ccDenies chest pain.Denies shortness of breath at rest. Has mild dyspnea on exertion.No orthopnea. No PNDs.Denies heart palpitations.Denies dizziness. Denies syncope or near syncope.No ankle or leg edema.No major bleeding events.No reported side effects from medications. Taking medications as prescribed with no missed doses.Denies snoring, daytime somnolence and AM headache.*Last LDL 178 was done 10/03/23 Eliezer Aguirre MD [facility] [place], [address], [facility] 11/08/2023 10:53:12 4 text/html 12/06/23CC : Cardiac follow Henrry MORENO is a 63 years-old white Male with h/o Hypertension, coronary arteriosclerosis, hypothyroidism, obstructive sleep apnea of adult , hyperlipidemia, and statin not tolerated is here for follow up with stress test results. He was last seen in the clinic on 11/08/23, since then he Had Negative stress test on 11/25/23 with Normal LV systolic function. Exercise tolerance: Good. LVEF: 53%.He denies ER visits and hospitalizations since he was last seen. Denies chest pain.Denies shortness of breath at rest. Has mild dyspnea on exertion.No orthopnea. No PNDs.Denies heart palpitations.Denies dizziness. Denies syncope or near syncope.No ankle or leg edema.No major bleeding events.No reported side effects from medications. Taking medications as prescribed with no missed doses.Denies snoring, daytime somnolence and AM headache.*Last LDL was 178 done on 09/16/23.Pt takes rosuvastatin 10 mg. *Had Negative stress test on 11/25/23 with Normal LV systolic function. Exercise tolerance: Good. LVEF: 53%. Previously:He had coronary atherosclerosis. And elevated calcium scoring Eliezer Aguirre MD [address] [place], [address], [place] [facility] 12/06/2023 09:20:11 5 text/html 06/05/23CC : Cardiac follow Henrry MORENO is a 64 years-old white Male with h/o Hypertension, coronary arteriosclerosis, hypothyroidism, obstructive sleep apnea of adult , hyperlipidemia, and statin not tolerated is here for 6 month follow up. He was last seen in the clinic on 12/06/23, since then he had Negative stress test on 11/25/23 with Normal LV systolic function. Exercise tolerance: Good. LVEF: 53%.He denies ER visits and hospitalizations since he was last seen. Today reports:no ccDenies chest pain.Denies shortness of breath at rest. Has mild dyspnea on exertion.No orthopnea. No PNDs.Denies heart palpitations.Denies dizziness. Denies syncope or near syncope.No ankle or leg edema.No major bleeding events.No reported side effects from medications. Taking medications as prescribed with no missed doses.Denies snoring, daytime somnolence and AM headache.*Last LDL was 178 done on 09/17/23.Pt takes rosuvastatin 10 mg. Previously:*Had Negative stress test on 11/25/23 with Normal LV systolic function. Exercise tolerance: Good. LVEF: 53%. *He had coronary atherosclerosis. And elevated calcium scoring Eliezer Aguirre MD [address] [facility], [place], [address], [place] [facility] 05/25/2024 12:08:04
--- OUTSIDE RECORDS SUMMARY | 2024-09-20 08:32 | XMS_ITS | Encounter Summary ---
Author Organization [facility] Address [address] [place] [address] Care Team Providers Care User Interface Engineer Name Role Phone Conner Carter MD Primary Care Provider [phone] Juliano Prajapati MD Unavailable [phone] Sherwin Venegas MD Unavailable [phone] Stalin Escalante MD Unavailable [phone] Jayleen Negron PA-C Unavailable [phone] Peter Holt DO Primary Care Provider Glo Damon [facility] Primary Care Provid er Scott Tapia MD Primary Care Provider [phone] Encounter Details Date Type Department Care Team (Late st Contact Info) Description 03/18/2013 Abstract [facility] CONVERSION [address] [place] [address] , Generic Conversion, Social History Tobacco Use Types Packs/Day Years Used Date Smoking Tobacco: Never Assessed Sex and Gender Information Value Date Recorded Sex Assigned at Not on file Legal Sex Male 11:59 PM CDT Gender Identity Not on file Sexual Orientation Not on file documented as of this encounter Plan of Treatment Not on file documented as of this encounter Visit Diagnoses Not on filedocumented in this encounter Additional Health Concerns Infection Onset Date Last Indicated Resolved Time COVID-19 Rule Out 03/21/2020 03/21/2020 03/22/2020 5:56 PM MICROSTRATEGY BI DEVELOPER COVID-19 Rule Out 04/02/2020 04/02/2020 04/03/2020 1:46 PM MICROSTRATEGY BI DEVELOPER COVID-19 Rule Out 06/30/2020 06/30/2020 07/01/2020 9:21 AM MICROSTRATEGY BI DEVELOPER documented as of this encounter Care Teams User Interface Engineer Relationship Specialty Start Date End Date Conner Carter MD PCP - General 06/25/16 10/01/21 Peter Holt DO [address] [place] [address] PCP - General FAMILY PRACTICE 10/02/21 08/17/23 Glo Damon, [facility]- [address] [place] [address] PCP - General Nurse Practitioner Family 08/18/2311/09 Scott Tapia MD [address] [facility] [address] [place] [address] PCP - General INTERNAL MEDICINE 11/28/23 Juliano Prajapati MD SURGERY 03/20/18 Sherwin Venegas MD [address] [place], [place] [id number] Referring Physician OTOLARYNGOLOGY 03/20/18 Stalin Escalante MD [address] [place] [address] LAMINATOR PRINTED CIRCUIT BOARDS 03/20/18 Jayleen Negron, [facility] [address] [place] [address] PHYSICIAN CHIEF MEDICAL PHYSICIST 03/25/18 Dr. Tommie Perez GASTROENTEROLOGY 03/20/18 documented as of this encounter
--- OUTSIDE RECORDS SUMMARY | 2024-09-20 08:32 | XMS_ITS | Clinical Summary ---
Author Organization [facility] Address [address] [place] [address] Care Team Providers Care Polystyrene Bead Molder Name Role Phone Unavailable Primary Care Provider Unavailabl e Source Comments [facility],non-owned Affiliates and Associated Physician Practices is amultiple site organization consisting of ambulatory clinics and hospital sitesin [place], [place], [place] and [place]. This disclosure is being madepursuant to the Care Everywhere program and may not contain all information available regarding this patient. Last updated 18.[facility] Allergies Active Allergy Reactions Criticality Noted Date Comments Penicillins 01/03/2010 Medications * Be aware that medications may not be up to date on this document. Alwaysverify current medications with the patient. fenofibrate (TRICOR) 145 MG tablet Take 145 mg by mouth daily. Active Ezetimibe-Simva statin (VYTORIN PO) Take by mouth. As directed Active aspirin 81 MG tablet Take 81 mg by mouth daily. Active Multiple Vitamin (MULTI-VITAMIN PO) Take by mouth. As directed Active [place]-3 Fatty Acids (FISH OIL PO) Take by mouth. As directed Active Flax OIL Take by mouth. As directed Active Green Tea, Camillia sinensis, (GREEN TEA PO) Take by mouth. As directed Active Digestive Enzymes (PAPAYA ENZYME PO) Take by mouth. As directed Active propoxyphene napsylate-aceta minophen (DARVOCET N-100) 100-650 MG tablet Take 1-2 Tabs by mouth every 4 hours as needed for Pain. 60 Tab 1 01/08/2010 Active hydrocodone-alfredito taminophen (NORCO) 5-325 MG tablet Take 1 Tab by mouth every 4 hours as needed for Pain. 30 Tab 0 03/09/2010 Active Active Problems Problem Noted Date Diagnosed Date Carpal tunnel syndrome 01/03/2010 Family History Medical History Relation Name Comments Diabetes Father Heart Failure Father Hypercholesterolemia Father Cancer Maternal Grandmother Diabetes Mother Hypercholesterolemia Mother Relation Name Status Comments Father Alive Maternal Grandmother Mother Alive Sister Alive Social History Tobacco Use Types Packs/Day Years Used Date Smoking Tobacco: Never Alcohol Use Standard Drinks/Week Comments Yes 0 (1 standard drink = 0.6 oz pur e alcohol) Socially Sex and Gender Information Value Date Recorded Sex Assigned at Not on file Legal 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 [employer] Gender Identity Not on file Sexual Orientation Not on file Occupation Industry Job Start Date Job End Date [employer] Not on file Not on file Not on file Last Filed Vital Signs Vital Sign Reading Time Taken Comments Blood Pressure 132/78 03/09/2010 11:07 AM CDT Pulse 82 03/09/2010 11:07 AM CDT Temperature 36.9 C (98.4 F) 03/09/2010 11:07 AM CDT Respiratory Rate 16 03/09/2010 9:41 AM CDT Oxygen Saturation 100% 03/09/2010 11:07 AM CDT Inhaled Oxygen Concentration - - Weight 93.3 kg (205 lb 11 oz) 03/09/2010 7:10 AM CDT Height 177.8 cm (5' 10 ) 03/09/2010 7:10 AM CDT Body Mass Index 29.51 03/09/2010 7:10 AM CDT Plan of Treatment Health Maintenance Due Date Last Done Comments COLOGUARD (AGES 45-75) - COL ON CA SCREENING 1960 COLON MONITORING 1960 COLONOSCOPY - COLON CA SCREENING 1960 CT COLONOGRAPHY - COLON CA SCREENING 1960 Colorectal Cancer Screening 1960 FIT - COLON CA SCREENING 1960 FLEX SIG - COLON CA SCREENING 1960 HIV SCREENING 1975 HEPATITIS C SCREENING 03/27/1978 DTAP/TDAP/TD VACCINES (1 - Tdap) 1979 PNEUMOCOCCAL VACCINE 50+ (1 of 1 - PCV) 2010 ZOSTER VACCINE (1 of 2) 2010 COVID-19 VACCINE (1 - 2023-2 5 season) 2024 DEPRESSION SCREENING 05/12/2024 INFLUENZA VACCINE (Season Ended) 2025 Respiratory Syncytial Virus (RSV) Vaccine Pt: or over 60 yrs (1 - 1-dose 75+ series) 2035 HEPATITIS B VACCINE Aged Out No longe r eligible based on patient's age to complete this topic HIB VACCINE Aged Out No longer eligi ble based on patient's age to complete this topic HPV VACCINE Aged Out No longer eligi ble based on patient's age to complete this topic MENINGOCOCCAL (Group B) VACC INE SHARED DECISION-MAKING Aged Out No longer eligibl e based on patient's age to complete this topic MENINGOCOCCAL GROUPS A/C/Y/W VACCINE Aged Out No longer eligible b ased on patient's age to complete this topic Insurance AENA
--- OUTSIDE RECORDS SUMMARY | 2024-09-20 08:32 | XMS_ITS | Clinical Summary ---
Author Organization [facility] Address [address] [place] [address] Phone Care Team Providers Care Exhibits Coordinator Name Role Phone Not Found, Stl Primary Care Provider Unavailabl e Allergies Active Allergy Reactions Criticality Noted Date Comments Penicillins Rash Low 01/03/2010 Medications Aloe Vera 25 mg Capsule Take 1 Capsule by mouth Takes fri, , , friday . Active aspirin (ECOTRIN EC) 81 mg Tablet, Delayed Release (E.C.) Take 81 mg by mouth every Friday, Friday, and Friday Takes in evening . Active BENEFIBER, GUAR GUM, ORAL Take 1 Tablet by mouth daily. Active coenzyme Q10 200 mg Capsule Take 200 mg by mouth daily. Active Prasterone, DHEA, (DHEA) 25 mg Capsule Take 1 Capsule by mouth every Friday, Friday, and Friday. Active multivitamin (DAILY-DEQUAN) tablet Take 1 Tablet by mouth daily. Active Dexchlorph/P-E phed HC/Methscop (D-HIST D ORAL) Take 1 Capsule by mouth 1 time daily as needed for Other (See Comment) (prn allergies). Active omega-3 fatty acids (FISH OIL ORAL) Take 1 Capsule by mouth daily. Active FLAXSEED ORAL Take 1 Capsule by mouth 2 times daily Takes every other day Fri, , , friday . Active fluticasone propionate (FLONASE) 50 mcg/spray [place], Suspension nasal inhaler Administer 2 Sprays in each nostril 2 times daily. Active GARLIC ORAL Take 600 mg by mouth 2 times daily. Active Green Tea Pine Knot Extract (GREEN TEA) Capsule Take 500 mg by mouth daily. Active IODINE ORAL Take 10 mg by mouth every Friday, Friday, and Friday. Active IRON ORAL Take 50 mg by mouth Friday and friday . Active MAGNESIUM AMINO ACID CHELATE ORAL Take 2 Capsules by mouth 2 times daily. Active MELATONIN ORAL Take 6 mg by mouth daily at bedtime. Active L. acidophilus/L. rhamnosus (PROBIOTIC ORAL) Take 1 Capsule by mouth daily. Active niacin (NIACOR) 500 mg tablet Take 500 mg by mouth 2 times daily. Active POTASSIUM-99 ORAL Take 1 Capsule by mouth daily at bedtime. Active DHA-PHOSPHATID YLSERINE ORAL Take 100 mg by mouth every Friday, Friday, and Friday Takes in pm . Active ZINC ORAL Take 54 mg by mouth every Friday, Friday, and Friday Takes in pm . Active RED YEAST RICE ORAL Take 1 Capsule by mouth 2 times daily. Active OTHER Take 400 mg by mouth every Friday, Friday, and Friday Provider please include Medication name, dose, route and frequency SAME-E complete . Active ferrous fumarate/vit Bcomp,C (SUPER B COMPLEX ORAL) Take 1 Capsule by mouth every Friday, Friday, and Friday Takes in pm . Active OTHER Take 1 Capsule by mouth every Friday, Friday, and Friday Provider please include Medication name, dose, route and frequency Ultra Gamma E complex . Active ascorbic acid, vitamin C, (VITAMIN C) 1,000 mg Tablet Take 1,000 mg by mouth 2 times daily. Active OTHER Take by mouth 2 times daily Provider please include Medication name, dose, route and frequency Liquid vitamin D3 with K2 1000 mg- 6 drops bid . Active ANASTROZOLE ORAL Take 0.15 mg by mouth every 7 days Take on . Active pyridoxine, vitamin B6, (VITAMIN B6) 100 mg Tablet Take 50 mg by mouth daily. Active OTHER Take 1 Capsule by mouth daily Provider please include Medication name, dose, route and frequency . Active sildenafil citrate (SILDENAFIL ORAL) Take 10 mg by mouth daily. 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 Active TESTOSTERONE IM Inject 2.5 mL by intramuscular injection every 7 days Takes on . Active finasteride (PROSCAR) 5 mg tablet Take 2.5 mg by mouth daily. Active bethanechol (URECHOLINE) 25 mg tablet Take 1.5 Tablets (37.5 mg) by mouth 3 times daily before meals. 90 Tablet 9 Active gabapentin (NEURONTIN) 300 mg capsule Take 1 Capsule (300 mg) by mouth 3 times daily before meals. 90 Capsule 12/01/2018 12:18 PM CDT 9 Active HYDROcodone-ac etaminophen (NORCO) 10-325 mg TabletIndicati ons:Congenital stenosis of lumbar spine Take 1 Tablet by mouth every 4 hours as needed for Pain, Moderate. Max Daily Amount: 6 Tablets 30 Tablet 9 Active tamsulosin (FLOMAX) 0.4 mg capsule Take 1 Capsule (0.4 mg) by mouth daily after supper. 30 Capsule 9 Active Social History Tobacco Use Types Packs/Day Years Used Date Smoking Tobacco: Never Smokeless Tobacco: Never Alcohol Use Standard Drinks/Week Comments Never 0 (1 standard drink = 0.6 oz pur e alcohol) Sex and Gender Information Value Date Recorded Sex Assigned at Not on file Legal Sex Male 9:53 AM CDT Gender Identity Not on file Sexual Orientation Not on file Last Filed Vital Signs Vital Sign Reading Time Taken Comments Blood Pressure 149/89 12/01/2018 8:00 AM CDT Pulse 85 12/01/2018 8:00 AM CDT Temperature 36.6 C (97.8 F) 12/01/2018 8:00 AM CDT Respiratory Rate 19 12/01/2018 8:00 AM CDT Oxygen Saturation 96% 12/01/2018 8:00 AM CDT Inhaled Oxygen Concentration - - Weight 90.4 kg (199 lb 4.8 oz) 11/30/2018 1:00 A M CDT Height 175.3 cm (5' 9 ) 11/26/2018 6:00 PM CDT Body Mass Index 29.43 11/26/2018 6:00 PM CDT Plan of Treatment Health Maintenance Due Date Last Done Comments DTAP/TDAP/TD VACCINES (1 - Tdap) 1979 COLORECTAL SCREENING 2005 Colorectal Cancer Screening 2005 FIT-DNA Q 3 years 2005 FIT/FOBT Q 1 year 2005 Flex Sig/CT Colonography Q 5 years 2005 ZOSTER VACCINE (1 of 2) 2010 INFLUENZA VACCINE (#1) 2023 RSV VACCINE (60+ or ) (1 - 1-dose 75+ series) 2035 Medical Devices Implanted Type Area Gas Meter Prover Device Identifier Shelf Expiration Date Model / Serial / Lot 10 X 32mm El Elevate Implanted:Qty: 1 on 11/23/2018 by Vaughn Urbano MD at [facility] Cage Right: Spine Lumbar [employer]AM[employer]ANEK 10/13/2022 [id number] / / [id number] Description:ENTERED BY RN Nohemi [id number] 10 X 32mm Elevate Implanted:Qty: 1 on 11/23/2018 by Vaughn Urbano MD at [facility] Cage Right: Spine Lumbar [employer]ANE[employer] 12/11/2023 [id number] / / [id number] Description:ENTERED BY RN Nohemi [id number] Antonino 75mm Solera Sextant Implanted:Qty: 2 on 11/23/2018 by Vaughn Urbano MD at [facility] Antonino Right: Spine Lumbar [employer]- [employer]FAM[employer]ANEK [id number] / / Description:ENTERED BY DANYA Song [id number] Screw Solera Karolina Ma 7.5x40mm [id number] - [id number] Implanted:Qty: 2 on 11/23/2018 by Vaughn Urbano MD at [facility] Screw Right: Spine Lumbar [employer] [id number] / / [id number] Screw Sextant Break-Off [id number] - [id number] Implanted:Qty: 6 on 11/23/2018 by Vaughn Urbano MD at [facility] Screw Right: Spine Lumbar [employer]ANEK [id number] / / [id number] Screw Solera Sextant 7.5 X 45mm Implanted:Qty: 4 on 11/23/2018 by Vaughn Urbano MD at [facility] Screw Right: Spine Lumbar [employer]ANEK [id number] / / Description:ENTERED BY DANYA Song [id number] [place] Dbm 8x10cm [id number] - [id number] Implanted:Qty: 1 on 11/23/2018 by Vaughn Urbano MD at [facility] Tissue Right: Spine Lumbar [employer] 08/05/2021 [id number] / [id number] / Description:REQ#[id number] Insurance RX [facility] [employer] Advance Directives For more information, please contact: [phone] Documents on File Type Date Recorded 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 Expl anation Advance Directive Living Will 11/18/2018 2:18 PM Advance Directive Living Will * Full Code (Latest Code Status on File) Date Activated Date Inactivated Comments 11/26/2018 4:58 PM 12/01/2018 2:57 PM * Full Code Date Activated Date Inactivated Comments 11/23/2018 5:13 PM 11/26/2018 4:54 PM * Full Code Date Activated Date Inactivated Comments 11/23/2018 5:13 PM 11/23/2018 5:13 PM * Full Code Date Activated Date Inactivated Comments 11/23/2018 10:42 AM 11/23/2018 5:13 PM Care Teams Exhibits Coordinator Relationship Specialty Start Date End Date Not Found, Stl NO ADDRESS ON FILE PCP - General 11/11/18
--- OUTSIDE RECORDS SUMMARY | 2024-09-20 08:32 | XMS_ITS | Encounter Summary ---
Author Organization [facility] Address [address] [place] [address] Care Team Providers Care Tailor'S Aide Name Role Phone Conner Carter MD Primary Care Provider [phone] Juliano Prajapati MD Unavailable [phone] Sherwin Venegas MD Unavailable [phone] Stalin Escalante MD Unavailable [phone] Jayleen Negron PA-C Unavailable [phone] Peter Holt DO Primary Care Provider Glo Damon [facility] Primary Care Provid er Scott Tapia MD Primary Care Provider [phone] Encounter Details Date Type Department Care Team (Late st Contact Info) Description 03/05/2013 Abstract [facility] CONVERSION [address] [place] [address] , Generic Conversion, Social History Tobacco Use [...] Rule Out 03/21/2020 03/21/2020 03/22/2020 5:56 PM NUTRITION AIDE COVID-19 Rule Out 04/02/2020 04/02/2020 04/03/2020 1:46 PM NUTRITION AIDE COVID-19 Rule Out 06/30/2020 06/30/2020 07/01/2020 9:21 AM NUTRITION AIDE documented as of this encounter Care Teams Tailor'S Aide Relationship Specialty Start Date End Date Conner Carter MD PCP - General 06/25/16 10/01/21 Peter Holt DO [address] [place] [address] PCP - General FAMILY PRACTICE 10/02/21 08/17/23 Glo Damon, [facility]- [address] [place] [address] PCP - General Nurse Practitioner Family 08/18/2311/09 Scott Tapia MD [address] [facility] [address] [place] [address] PCP - General INTERNAL MEDICINE 11/28/23 Juliano Prajapati MD SURGERY 03/20/18 Sherwin Venegas MD [address] [place], [place] [id number] Referring Physician OTOLARYNGOLOGY 03/20/18 Stalin Escalante MD [address] [place] [address] RADIO ADJUSTER 03/20/18 Jayleen Negron, ALEXC [address] [place] [address] PHYSICIAN TIMBER ESTIMATOR 03/25/18 Dr. Tommie Perez GASTROENTEROLOGY 03/20/18 documented as of this encounter
--- OUTSIDE RECORDS SUMMARY | 2024-09-20 08:32 | XMS_ITS | Referral Summary ---
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 Gender Identity Not on file Sexual Orientation Not on file Last Filed Vital Signs Vital Sign Reading Time Taken Comments Blood Pressure 139/92 08/01/2016 7:24 AM CDT Pulse 62 08/01/2016 7:24 AM CDT Temperature 35.9 C (96.6 F) 08/01/2016 7:24 AM CDT Respiratory Rate - - Oxygen Saturation 95% 08/01/2016 7:24 AM CDT Inhaled Oxygen Concentration - - Weight 95.3 kg (210 lb) 10/22/2022 1:35 PM CDT Height 177.8 cm (5' 10 ) 10/22/2022 1:35 PM CDT Body Mass Index 30.13 10/22/2022 1:35 PM CDT Plan of Treatment Not on file Insurance [facility]ETNA [facility] Advance Directives For more information, please contact: [phone] Documents on File Type Date Recorded Patient Dynamometer Tuner Expl anation ADVANCE DIRECTIVE 07/25/2016 12:00 AM MAXINE Vizcarra OF SENIOR FORMULATION SCIENTIST FINANCIAL/MEDICAL Care Teams Die Reamer Relationship Specialty [place] [address] [place] [address] PCP - General Urology 10/15/22
--- OUTSIDE RECORDS SUMMARY | 2024-09-20 08:32 | XMS_ITS | Clinical Summary ---
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 Gender Identity Not on file Sexual Orientation [...] 10/22/2022 1:35 PM CDT Plan of Treatment Health Maintenance Due Date Last Done Comments Colon Cancer Screening-Colonoscopy 1960 Depression Screening 1960 Hepatitis C Screening 1960 Prostate Cancer Screening-PSA 1960 Hepatitis B Screening 1978 Regular Well Visit/Exam 18-64 1978 Zoster Vaccine (1 of 2) 2010 Influenza Vaccine (#1) 2024 6, 03/21/2016 DTaP/Tdap/Td Vaccine (2 - Td or Tdap) 03/21/2026 03/21/2016 Pneumococcal vaccine <65 Aged Out No longer eligible based on patient's age to complete this topic Insurance Advance Directives For more information, please contact: [phone] Documents on File Type Date Recorded 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
--- OUTSIDE RECORDS SUMMARY | 2024-09-20 08:33 | XMS_ITS | Encounter Summary ---
Author Organization [facility] Address [address] [place] [address] Care Team Providers Care Straightedge Machine Operator Helper Name Role Phone Conner Carter MD Primary Care Provider [phone] Juliano Prajapati MD Unavailable [phone] Sherwin Venegas MD Unavailable [phone] Stalin Escalante MD Unavailable [phone] Jayleen Negron PA-C Unavailable [phone] Peter Holt DO Primary Care Provider Glo Damon [facility] Primary Care Provid er Scott Tapia MD Primary Care Provider [phone] Encounter Details Date Type Department Care Team (Latest Contact Info) Description 03/17/2018 Abstract [facility] , Heather Copeland MD Social History Tobacco Use Types Packs/Day Years [...] Rule Out 03/21/2020 03/21/2020 03/22/2020 5:56 PM STANDARDS ANALYST COVID-19 Rule Out 04/02/2020 04/02/2020 04/03/2020 1:46 PM STANDARDS ANALYST COVID-19 Rule Out 06/30/2020 06/30/2020 07/01/2020 9:21 AM STANDARDS ANALYST documented as of this encounter Care Teams Straightedge Machine Operator Helper Relationship Specialty Start Date End Date Conner Carter MD PCP - General 06/25/16 10/01/21 Peter Holt DO [address] [place] [address] PCP - General FAMILY PRACTICE 10/02/21 08/17/23 Glo Damon, [facility] [address] [place] [address] PCP - General Nurse Practitioner Family 08/18/2311/09 Scott Tapia MD [address] [place] [address] [address] [place] [address] PCP - General INTERNAL MEDICINE 11/28/23 Juliano Prajapati MD SURGERY 03/20/18 Sherwin Venegas MD [address] [place], [place] [id number] Referring Physician OTOLARYNGOLOGY 03/20/18 Stalin Escalante MD [address] [place] [address] RECEIVER DISPATCHER 03/20/18 Jayleen Negron, ALEXC [address] [place] [address] PHYSICIAN DATA SYSTEMS ANALYST 03/25/18 Dr. Tommie Perez GASTROENTEROLOGY 03/20/18 documented as of this encounter
--- OUTSIDE RECORDS SUMMARY | 2024-09-20 08:33 | XMS_ITS | Clinical Summary ---
Author Organization [facility] Address [facility] [place] [address] Care Team Providers Care Civil Preparedness Training Officer Name Role Phone Juliano Prajapati MD Unavailable [phone] Sherwin Venegas MD Unavailable [phone] Stalin Escalante MD Unavailable [phone] Jayleen Negron PA-C Unavailable [phone] Scott Tapia MD Primary Care Provider [phone] Allergies Active Allergy Reactions Criticality Noted Date Comments Molds & Smuts Rash Low 11/19/2023 Penicillins Hives,Rash,Unknown Low 01/03/2010 Rosuvastatin Other (see comment) 03/24/2012 Muscle pain Statins Other (see comment) 09/08/2020 Muscle pain Medications Melatonin 3 MG Cap Take 2 capsules by mouth nightly at bedtime. Active Potassium 99 MG tablet Active EASY TOUCH FLIPLOCK NEEDLES 25G X 1-1/2 Misc Inject 0.3 mLs into the muscle once as needed. Once a week 1 07/29/19 18 Active B Wdyavky-F-Thwof Acid (SUPER B COMPLEX/FA/VIT C) TabIndications:no t taking Indications: not taking Active vitamin C 1000 MG tablet Active Coenzyme Q10 (CO Q-10) 300 MG Cap Take 200 mg by mouth. Active Green Tea 315 MG Cap Active testosterone cypionate 200 MG/ML injection 0 01/18/20 18 Active fiber Powder Take by mouth daily. 03/21/20 16 Active Zinc 50 MG Cap Take 54 mg by mouth. Active Magnesium-Zinc (MAGNESIUM-CHELAT ED ZINC OR) Take 150 mg by mouth. Active Dexchlorphen-PSE- Methscop (D-HIST D OR) Active Garlic 100 MG Tab Take 600 mg by mouth. Active fluticasone propionate 50 MCG/ACT nasal spray 1 spray by Nasal route daily. Active Folic Acid-Vit B6-Vit B12 (HOMOCYSTEINE FORMULA OR) Active Iodine-Vitamin A 0.225-2000 MG-UNIT Cap Active Probiotic Product (PROBIOTIC DAILY) Cap Active Phosphatidylserin e 100 MG CapIndications:MW F Indications: MWF Act kaci Vitamin Mixture (VITAMIN E COMPLETE) Cap Active doxazosin 2 MG tablet Take 1 tablet (2 mg total) by mouth nightly at bedtime. Active finasteride 5 MG tablet Take 0.5 tablets (2.5 mg total) by mouth daily. Active Aloe Vera 25 MG Cap Active ferrous sulfate dried CR (SLOW IRON) 160 (50 Fe) MG Tab CR tablet Take 1 tablet by mouth. Friday, Friday, Friday Active vitamin D3, cholecalciferol, 75 MCG (3000 UT) Tab tablet Take 1 tablet (3,000 Units total) by mouth daily. Active Multiple Vitamin (DAILY-DEQUAN) Tab Take 1 tablet by mouth daily. Active DHEA 25 MG Cap Take 1 capsule by mouth every other day. EVERY Friday Active amitriptyline (ELAVIL) 10 MG tablet Take 2 tablets (20 mg total) by mouth nightly at bedtime. 12/03/19 23 Active fenofibrate (TRICOR) 48 MG tablet Take 1 tablet (48 mg total) by mouth 4 (four) times a week. 12/03/19 23 Active VASCEPA 1 g capsule Take 1 capsule (1 g total) by mouth 2 (two) times a day, 3 (three) days a week. 11/29/19 23 Active SURE COMFORT INSULIN SYRINGE 31G X 5/16 1 ML Misc USE DIRECTED FOR SUBCUTANEOUS INJECTIONS 04/23/20 22 Active levothyroxine (SYNTHROID) 75 MCG tablet Take 1.5 tablets (112.5 mcg total) by mouth every morning. 10/17/19 23 Active pregabalin (LYRICA) 100 MG capsuleIndication s:Lumbar radiculopathy Take 1 capsule by mouth in the morning and 2 in the evening. 270 capsule 1 04/14/20 23 Active Vitamin D-Vitamin K (VITAMIN K2-VITAMIN D3 OR) Take by mouth daily. 1 dropper full daily Active anastrozole (ARIMIDEX) 1 MG tablet Take 0.2 tablets by mouth 2 (two) times a week. Active tirzepatide (ZEPBOUND) 7.5 MG/0.5ML injectionIndicati ons:Weight Loss Inject 7.5 mg into the skin once a week. Indications: Weight Loss Active rosuvastatin (CRESTOR) 10 MG tablet Take 1 tablet (10 mg total) by mouth 3 (three) times a week. Active Bempedoic Acid-Ezetimibe (NEXLIZET) 180-10 MG Tab Take 1 tablet by mouth 2 (two) times a day, 3 (three) days a week. Active Active Problems Problem Noted Date Diagnosed Date Recurrent right inguinal hernia 06/19/2020 Overview (06/19/2020): Added automatically from request for surgery [id number] Colonic mass 2020 Overview (2020): Added automatically from request for surgery [id number] Low back pain 03/25/2018 Hyperlipidemia 03/24/2012 Resolved Problems Problem Noted Date Diagnosed Date Resolved Date Screening for colon cancer 11/14/2023 0 11/17/2023 Screening for colon cancer 11/14/2023 0 11/24/2023 Screening for colon cancer 11/14/2023 0 12/01/2023 Immunizations Immunization Administration Dates Next Due Influenza Adult (Generic) 03/21/2016 Tdap (Generic) 03/21/2016 Family History Medical History Relation Comments Diabetes Father Heart Disease Father pacemaker Diabetes Mother Breast Cancer Paternal Grandmother Relation Status Comments Father Mother Paternal Grandmother Social History Tobacco Use Types Packs/Day Years Used Date Smoking Tobacco: Never Smokeless Tobacco: Never Tobacco Cessation:Counseling Given: Not Answered Alcohol Use Standard Drinks/Week Comments Not Currently 0 (1 standard drink = 0.6 oz pur e alcohol) socially AUDIT-C Answer Date Recorded Frequency of Alcohol Consumption Monthly or less 03/25/2018 Average Number of Drinks Not on file 018 Frequency of Binge Drinking Not on file 03/12 PHQ-2 Answer Date Recorded Patient Health Questionnaire-2 Score 0 10/03/2023 Sex and Gender Information Value Date Recorded Sex Assigned at Not on file Legal Sex Male 11:59 PM CDT Gender Identity Not on file Sexual Orientation Not on file Last Filed Vital Signs Vital Sign Reading Time Taken Comments Blood Pressure 109/61 11/28/2023 9:52 AM CDT Pulse 64 11/28/2023 9:52 AM CDT Temperature 36.8 C (98.2 F) 11/28/2023 9:52 AM CDT Respiratory Rate 16 11/28/2023 9:52 AM CDT Oxygen Saturation 96% 11/28/2023 9:52 AM CDT Inhaled Oxygen Concentration - - Weight 95.7 kg (211 lb) 11/28/2023 7:40 AM CDT Height 177.8 cm (5' 10 ) 11/28/2023 7:40 AM CDT Body Mass Index 30.28 11/28/2023 7:40 AM CDT Plan of Treatment Health Maintenance Due Date Last Done Comments Hepatitis C 1978 Pneumococcal Vaccine: 50+ Years (1 of 1 - PCV) 2010 Zoster Vaccines (1 of 2) 2010 Annual Physical 12/04/2023 12/03/2022, 11/23/2021 COVID-19 Vaccine ( - season) 2024 PHQ-2 (Physician [place]) 05/12/2024 10/03/2023 DTaP, Tdap and Td Vaccines (2 - Td or Tdap) 03/21/2026 03/21/2016, 05/12/2015 Colorectal Cancer Screening Colonoscopy (10 Years) 04/05/2030 04/05/2020, 04/05/2020, 03/24/2020, Additional history exists RSV Immunization or 60+ Years (1 - 1-dose 75+ series) 2035 Meningococcal B Vaccine Aged Out No l onger eligible based on patient's age to complete this topic Meningococcal Vaccine Aged Out No nathaniel sunshine eligible based on patient's age to complete this topic RSV Immunizations Under 20 Months Aged Out No longer eligible based on patient's age to complete this topic Medical Devices Implanted Type Area Anglesmith Helper Device Identifier Shelf Expiration Date Model / Serial / Lot Screw Screw Spine Lumbar [employer] Kugel Bard Small Oval 8 X 12 - [id number] Implanted:Qty : 1 on 07/03/2020 by Bill Cornejo MD at [facility] Right: Abdomen [employer] [id number] 01/06/2021 [id number] / [id number] Procedures Procedure Name Priority Date/Time Associated Diagnosis Comments COLONOSCOPY GENERIC (SCAN ORDER) Routine 04/05/2020 from Last 3 Months or Most Recently Relevant to Health Maintenance Results * COLONOSCOPY (04/05/2020) us Documents Scanned SCANNING Final Result [facility] from Last 3 Months or Most Recently Relevant to Health Maintenance Insurance [facility] Care Teams Civil Preparedness Training Officer Relationship Specialty Start Date End Date Scott Tapia MD [address] [facility] [address] [place] [id number] PCP - General INTERNAL MEDICINE 11/28/23 Juliano Prajapati MD SURGERY 03/20/18 Sherwin Venegas MD [address] [place] [address] Referring Physician OTOLARYNGOLOGY 03/20/18 Stalin Escalante MD [address] [place] [address] BIG DATA HADOOP DEVELOPER 03/20/18 Jayleen Negron, ALEXC [address] [place] [address] PHYSICIAN LEATHER TOGGLER 03/25/18 Dr. Tommie Perez GASTROENTEROLOGY 03/20/18
--- OUTSIDE RECORDS SUMMARY | 2024-09-20 08:33 | XMS_ITS | Data Portability ---
Author Organization MD - [facility], [employer] Address [address] [place] [address] Assessment Encounter Date Assessment Date Assessment LastModified by Organization Details LastModified Time 09/10/2023 09/10/2023 New patient presented for admission to the practice. Studies ordered as below. Discussed plan with patient, who expressed understanding . Follow up as noted below. [email or web address] Not available 09/10/2023 09:44:54 04/28/2024 04/28/2024 Patient presented for follow up. Studies ordered as below. Discussed plan with patient/eugene younger, who expressed understanding . Follow up as noted below. [email or web address] Not available 04/28/2024 11:23:29 Plan of Treatment Reminders Order Date Submit Date Provider Last Modified By Organization Details Last Modified Time Details Appointments None recorded. Lab HIV (1+2) Ab screen, serum 2023 024 [facility], [address], [address], 4 12:06:54 hepatitis C virus Ab, serum 2023 024 [facility], [address] [place] [address], [address], 4 12:06:53 lipid panel w/ direct LDL, serum 2023 024 [facility], [address], [address], 5 22:31:34 CMP, serum or plasma 2023 024 [facility], [address] [facility] [address], [place], [address], 5 22:31:34 CBC w/ auto diff 2023 024 [facility], [address] [facility] [address], [place], [address], 5 22:31:35 C-peptide, serum 2023 024 [facility], [address] [facility] [address], [place], [address], 4 12:06:51 HbA1c (hemoglobi n A1c), blood 2023 024 [facility], [address] [facility] [address], [place], [address], 5 22:31:34 clostridiu m difficile Ag + toxin, stool 2023 024 [facility], [address] [facility] [address], [place], [address], 4 12:06:51 wbc, stool 2023 024 [facility], [address] [facility] [address], [address], 4 12:06:56 TSH + free T4, serum 2023 024 [facility], [address] [facility] [address], [place], [address], 5 22:31:35 lipid panel w/ direct LDL, serum 2023 024 [facility], [address] [facility] [address], [place], [address], 4 10:10:53 glucose tolerance test, 2-hour 2023 024 [facility], [address], [address], 4 10:10:51 C-peptide, serum 2023 024 [facility], [address], [address], 4 10:50:09 TSH + free T4, serum 2023 024 [facility], [facility] [address], [address], 4 10:50:04 AST/SGOT (aspartate aminotrans ferase), serum or plasma 2023 024 [facility], [address], [address], 4 10:50:06 ALT (alanine aminotrans ferase), serum or plasma 2023 024 [facility], [address], [address], 4 10:50:07 Referral dermatolog ist referral 2023 024 [facility], [address], [place], [address], 4 12:35:20 gastroente rologist referral 2023 024 ARTHUR Perez MD, 3 [facility], [address], [address], 5 04:03:[address] referral 2023 024 ARTHUR Aguirre MD, [address] [facility], [place], [address], 08:48:24 Procedures None recorded. Surgeries None recorded. Imaging electrocar diogram 2023 024 [facility], [facility], [address], [place], [address], 16:19:37 Medication Orders None recorded. Patient TargetsNo targets recorded. Patient Instructions Encounter Date Encounter Id Patient Instructions Last Modified By Organization Details Last Modified Time 09/10/2023 [id number] prostate biopsy: about this test mshenouda Not available 09/10/2023 10:10:24 hypothyroidism: care instructions mshenouda Not available 09/10/2023 10:10:25 living will mshenouda Not available 05/2023 10:10:27 04/28/2024 [id number] prostate biopsy: about this test mshenouda Not available 04/28/2024 12:06:17 diarrhea: care instructions mshenouda Not available 04/28/2024 12:06:17 learning about healthy weight mshenouda Not available 04/28/2024 12:06:16 hypothyroidism: care instructions mshenouda Not available 04/28/2024 12:06:17 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 Referral for Screening for malignant neoplasm of colon Referring Physician: Scott Tapia, Internal Medicine, Encounter Date: 09/10/2023 Music Historian Referral for Co ronary arteriosclerosis Referring Physician: Scott Tapia, Internal Medicine, Encounter Date: 09/10/2023 Long Term Care Pharmacist Referral for C yst of skin Referring Physician: Scott Tapia, Internal Medicine, Encounter Date: 04/28/2024 Results Created Date Observation Date Name Description Value Unit Range Abnormal Flag Note LastModifiedBy Organization Detail LastModifiedTime 09/17/1909/18/2023 LIPID PANEL WITH REFLE X TO DIREC T LDL cholesterol, total 255 mg/dL <200 high Not Available [facility] [address], [place], [address], 09/18/2023 10:50:03 09/17/19 24 09/18/2023 LIPID PANEL WITH REFLE X TO DIREC T LDL HDL cholesterol 42 mg/dL > or = 40 normal Not Available [facility] [place] [address] [place], [address], 09/18/2023 10:50:03 09/17/19 24 09/18/2023 LIPID PANEL WITH REFLE X TO DIREC T LDL triglyceride s 194 mg/dL <150 high Not Available [facility] [address] , [place], [address], 09/18/2023 10:50:03 09/17/19 24 09/18/2023 LIPID PANEL WITH REFLE X TO DIREC T LDL LDL-choleste rol 178 mg/dL _(nadia c) high Refer ence range : <100 Dax able range <100 mg/dL for prima ry preve ntion ; <70 mg/dL for patie nts with CHD or diabe tic patie nts with > or = 2 CHD risk facto rs. LDL-C is now calcu lated using the Aurelia n-Hop kins nishiu diana n, which is a valid ated novel ever escudero accur acy than the Fried nakia equat ion in the estim ation of LDL-C . Aurelia hassan SS et al. PEACE. 2013; 310(1 9): 2061- 2068 (http ://ed ucati on.Qu Epifanio correia tics. com/f aq/FA Q164) Not Available [facility] [address], [place], [address], 09/18/2023 10:50:03 09/17/19 24 09/18/2023 LIPID PANEL WITH REFLE X TO DIREC T LDL chol/HDLC ratio 6.1 (calc ) <5.0 high Not Available [facility] [address] [address] [place], [address], 09/18/2023 10:50:03 09/17/19 24 09/18/2023 LIPID PANEL WITH REFLE X TO DIREC T LDL non HDL cholesterol 213 mg/dL _(nadia c) <130 high For patie nts with diabe anisa plus 1 major ASCVD risk facto r, treat ing to a non-H DL-C goal of <100 mg/dL (LDL- C of <70 mg/dL ) is consi yeisond a thera peabisaii c optio n. Not Available [address], [address], 09/18/2023 10:50:03 09/17/19 24 09/18/2023 TSH+F REE T4 TSH 1.47 mIU/L 0.40-4 .50 normal Not Available [address], [address], 09/18/2023 10:50:04 09/17/19 24 09/18/2023 TSH+F REE T4 T4, free 1.2 NG/dL 0.8-1. 8 normal Not Available [address], [address], 09/18/2023 10:50:04 09/17/19 24 09/18/2023 AST AST 39 U/L 10-35 high Not Available [address], [address], 09/18/2023 10:50:06 09/17/19 24 09/18/2023 ALT ALT 45 U/L 9-46 normal Not Available [address], [address], 09/18/2023 10:50:06 09/17/19 24 09/18/2023 GLUCO SE RADHA ANCE TEST, 2 SPECI MENS (75G) fasting specimen 95 mg/dL 65-99 normal Not Available [address], [address], 09/18/2023 10:50:08 09/17/19 24 09/18/2023 GLUCO SE RADHA ANCE TEST, 2 SPECI MENS (75G) 2 hour specimen 159 mg/dL <140 high Not Available [address], [address], 09/18/2023 10:50:08 09/17/19 24 09/18/2023 GLUCO SE RADHA ANCE TEST, 2 SPECI MENS (75G) comment Ameri can [facility] for Diabe anisa Melli tus Gluco se Value (mg/d L) Inter preta tion Fasti ng 2 hr Radha ance ----- ----- ---- ----- -- ----- ----- ---- Riene l <100 <140 Impai red Fasti ng 100-1 25 Impai red Radha ance 140-1 99 Diabe anisa > or =126* > or =200* * Must be confi rmed by testi ng on a subse quent day. Not Available [address] [place], [address], 09/18/2023 10:50:08 09/17/19 24 09/18/2023 C-PEP TIDE C-peptide 3.78 NG/mL 0.80-3 .85 normal Not Available [address], [address], 09/18/2023 10:50:09 09/10/19 24 07/17/2023 imagi ng/di agnos tic resul t No observ ation record ed. [facility] Not Available 2023 10:03:47 09/10/19 24 07/17/2023 CT, coron beata calci um score No observ ation record ed. [facility] Not Available 2023 09:58:50 09/10/19 24 09/10/2023 elect alexei almaraz am No observ ation record ed. [facility], [facility] [address], [place], [address], 04/28/2024 11:54:01 09/10/19 24 09/10/2023 elect rocar diogr am No observ ation record ed. [facility], [facility] [address], [place], [address], 04/28/2024 11:54:01 12/01/19 24 11/25/2023 exerc ise stres s test No observ ation record ed. [facility] [id number] [facility] [address], [place], [address], 04/28/2024 11:54:01 12/01/19 24 09/10/2023 elect alexei parkgr am No observ ation record ed. [place] [id number] [facility] [address], [place], [address], 04/28/2024 11:54:02 06/21/19 25 06/21/2024 MRI, lumba r spine , w/o contr ast No observ ation record ed. [facility] [address], [place], [address], 06/21/2024 22:46:57 06/21/1906/21/2024 MRI, thora cic spine , w/o contr ast No observ ation record ed. [facility] [address], [place], [address], 06/21/2024 22:46:57 Result Notes None recorded. Problems Name Problem SNOMED Code Status Onset Date Resolution Date Notes Provider Name and Address Organization Details Recorded Time Serum creatinine above reference range 325973342 Active 2024 Scott Tapia MD [address], [place], [address], [facility] 22:35:04 Prostate specific antigen above reference range 092615668 Active 2023 Scott Tapia MD [address], [place], [address], [facility] 4 09:49:43 Benign hypertensio n 67635938 Active 2023 Scott Tapia MD [address], [place], [address], [facility] 4 09:49:45 Lumbago with sciatica 149538295 Active 2023 Scott Tapia MD [address], [place], [address], [facility] 4 09:49:47 Chronic low back pain 737773675 Active 2023 Scott Tapia MD [address], [place], [address], [facility] 4 09:49:48 Mixed hyperlipide denice 405465582 Active 2023 Scott Tapia MD [address], [place], [address], [facility] 4 09:49:50 Hypogonadis m 75734166 Active 2023 Scott Tapia MD [address], [place], [address], [facility] 4 09:49:51 Statin not tolerated 574127607 Active 2023 Scott Tapia MD [address], [place], [address], [facility] 4 09:49:54 Insulin resistance 373981799 Active 2023 Scott Tapia MD [address], [place], [address], [facility] 4 09:49:57 Hypothyroid ism 56213362 Active 2023 Scott Tapia MD [address], [place], [address], [facility] 4 09:49:59 Family history of diabetes mellitus 213797283 Active 2023 Scott Tapia MD [address], [place], [address], [facility] 4 09:58:00 Liver enzymes level above reference range 662073153 Active 2023 Scott Tapia MD [address], [place], [address], [facility] 4 10:02:28 Obstructive sleep apnea of adult 0388383487147 Active 2023 Scott Tapia MD [address], [place], [address], [facility] 4 10:02:41 Coronary arterioscle rosis 78127783 Active 2023 Scott Tapia MD [address], [place], [address], [facility] 10:04:12 Problem Notes None recorded. Procedures Surgical History None recorded. Imaging Results Imaging Date Name Status LastModified by Organization Details LastModified Time 07/17/2023 imaging/diagnostic result completed [facility] Information not available 09/10/2023 10:03:47 07/17/2023 CT, coronary calcium score completed [facility] of Information not available 09/10/2023 09:58:50 09/10/2023 electrocardiogram completed [facility] [place] [employer], [facility] [address], [place], [address], 04/28/2024 11:54:01 09/10/2023 electrocardiogram completed [facility], [facility] [address], [place], [address], 04/28/2024 11:54:01 11/25/2023 exercise stress test completed [facility] [address], [place], [address], 04/28/2024 11:54:01 09/10/2023 electrocardiogram completed [facility] [address] [facility] [address], [place], [address], 04/28/2024 11:54:02 06/21/2024 MRI, lumbar spine, w/o contrast completed [facility] [address], [place], [address], 06/21/2024 22:46:57 06/21/2024 MRI, thoracic spine, w/o contrast completed [facility] [address], [place], [address], 06/21/2024 22:46:57 Procedure Notes None recorded. Medical Equipment None Reported. Allergies Allergen ID Allergen Name Allergen Category Reaction Reaction Severity Criticality Documentation Date Start Date Code Code System Note Provider Name and Address Organization Details Recorded Time Product containin g penicilli n (product) medicatio n rash Not available Not available 09/10/2023 13723 8001 JAY Tapia MD [address], [place], [address], [facility] 4 09:56:19 19307 Product containin g 3-hydroxy -3-methyl glutaryl- coenzyme A reductase inhibitor (product) medicatio n myalgias (muscle pain) Not available Not available 09/10/2023 08180 009 JAY Tapia MD [address], [place], [address], [facility] 4 09:56:32 02861 mold extract environme nt rash Not available Not available 09/10/2023 17693 8 RxNorm Scott Tapia MD [address], [place], [address], [facility] 4 09:56:49 Medications Name Sig Start Date Stop Date Status Note LastModified by Organization Details LastModified Time metformin 500 mg tablet TAKE 1 TABLET BY MOUTH TWICE DAILY WITH MORNING & PM MEALS 04/28 completed Not Available Not Available Not Available anastrozole 1 mg tablet active Not Available Not Available Not Available potassium chloride ER 10 mEq capsule,ext ended release active Not Available Not Available Not Available clindamycin HCl 300 mg capsule TAKE 1 TABLET BY MOUTH FOUR TIMES DAILY 09/09 completed Not Available Not Available Not Available naltrexone 50 mg tablet TAKE 1 TABLET BY MOUTH DAILY FOR 18 DAYS 04/28 completed Not Available Not Available Not Available ondansetron HCl 4 mg tablet TAKE [...] Available Not Available doxazosin 2 mg tablet active Not Available Not Available No t Available rosuvastati n 10 mg tablet Take 1 tablet every day by oral route. 2024 active Not Available Not Available Not Avai lable omega-3 acid ethyl esters 1 gram capsule [...] Available fenofibrate nanocrystal lized 48 mg tablet 04/28 completed Not Available Not Available Not Available icosapent ethyl 1 gram capsule BID active Not Available Not Available Not Available Nexlizet 180 mg-10 mg tablet Take 1 tablet every day by oral route. 04/28 completed Not Available Not Available Not Available Trulicity 3 mg/0.5 mL subcutaneou s pen injector INJECT 3MG SUBCUTANE OUSLY ONCE EVERY WEEK 09/09 completed Not Available Not Available Not Available Zepbound 10 mg/0.5 mL subcutaneou s pen injector active Not Available Not Available Not Available Zepbound 5 mg/0.5 mL subcutaneou s pen injector 04/28 completed Not Available Not Available Not Available Zepbound 2.5 mg/0.5 mL subcutaneou s pen injector 04/28 completed Not Available Not Available Not Available Zepbound 15 mg/0.5 mL subcutaneou s pen injector active Not Available Not Available Not Available Zepbound 7.5 mg/0.5 mL subcutaneou s pen injector 04/28 completed Not Available Not Available Not Available Vitals Date Recorded Body height Body temperature Body mass index (BMI) Body weight Respiratory rate Heart rate Systolic blood pressure Diastolic blood pressure Provider Name and Address Organization Details Last Updated DateTime 4 177.8 cm 98 [degF] 32.1 kg/m2 636208. 69 g 16 /min 65 /min 138 mm[Hg] 84 mm[Hg] [facility] 4 09:18:52 Date Recorded Body height Body temperature Heart rate Respiratory rate Body mass index (BMI) Body weight Systolic blood pressure Diastolic blood pressure Provider Name and Address Organization Details Last Updated DateTime 4 177.8 cm 97.8 [degF] 73 /min 16 /min 28.1 kg/m2 31131.1 g 133 mm[Hg] 75 mm[Hg] [facility] 11:24:11 Social History None recorded. Functional Status None recorded. Mental Status None recorded. Family History Relationship Description Onset Age of this Age Resolved Age Notes LastModified by Organization Details LastModified Time Father Diabetes mellitus 82 [email or web address] Not available 2023 09:57:12 Mother Diabetes mellitus 80 mshenouda Not available 2023 09:57:13 Medical History No medical history recorded. Immunizations Vaccine Type Date Status Note Provider Nam e and Address Organization Details Recorded Time Td(adult) unspecified formulation 05/12/2015 completed Scott Tapia MD [address], [place], [address], [facility] 09/10/2023 09:55:10 influenza, unspecified formulation 02/10/2020 completed Scott aTpia MD [address], [place], [address], [facility] 09/10/2023 09:55:29 Past Encounters Encounter ID Performer Location Encounter Start Date Encounter Closed Date Diagnosis/Indication Diagnosis SNOMED-CT Code Diagnosis ICD10 Code Diagnosis Note [id number] Scott Tapia MD [facility], [facility] [address] [place] [address] 09/10/2023 09:01:57 09/10/2023 10:39:10 Adult health examination 479680613 Z00.00 Hypothyroidism 73237349 E03.9 Insulin resistance 19686 5000 E88.819 Statin not tolerated 413 451239 Z78.9 Hypogonadism 20716321 E2 9.1 on replacemen t Mixed hyperlipidemia 267 585408 E78.2 Chronic low back pain 27 7307291 M54.50 see pain management IPC Lumbago with sciatica 20 5360737 M54.41 per pt pain management Benign hypertension 1072 5009 I10 per pt had optometry 03/2023 Prostate s pecific antigen above reference range 610395221 R97.20 seen urology , had MRI , and Bx Screening for malignant neoplasm of colon 445505219 Z12.11 Active or passive immunization 742219962 Z23 Family his tory of diabetes mellitus 313441156 Z83.3 Liver enzy mes level above reference range 507747618 R74.8 Obstructiv e sleep apnea of adult 5394986466 103 G47.33 on CPAP Coronary arteriosclerosis 68687332 I25.10 on CTA coronary [id number] Scott Tapia MD [place] [facility], [facility] [address] [place] [address] 04/28/2024 10:52:53 04/28/2024 12:16:14 Benign hypertension 88583478 I10 per pt had optometry 03/2023 Chronic low back pain 27 5343725 M54.50 see pain management IPC Coronary arteriosclerosis 42999705 I25.10 on CTA coronary , seen cardiology , had stress test Family his tory of diabetes mellitus 635788293 Z83.3 Hypothyroidism 91255888 E03.9 Body mass index 25-29 - overweight 809736597 Z68.28 down 28 LB on zepbound Diarrhea 67403504 R19.7 stop Prostate s pecific antigen above reference range 888642425 R97.20 seen urology , had MRI , and Bx Mixed hyperlipidemia 267 832376 E78.2 Screening for malignant neoplasm of colon 628704202 Z12.11 11/2023 , good for 5 years Active or passive immunization 815270716 Z23 decline shots Viral screening 05928393 4 Z11.59 Obstructiv e sleep apnea of adult 1444236721 103 G47.33 on CPAP , decreased pressure to 8 mm hg Cyst of skin 109879087 L 72.9 elbow and scalp Health Concerns Section Related Observation LastModified by Organization Detai ls LastModified Time None Recorded Concern Status LastModified by Organization Details LastModified Time None Recorded Advance Directives Directive None Recorded Payers Encounter Date Sequence Insurance Name Policy Number Policy Aponte Covered Member ID Aponte Member ID Guarantor Name 09/10/2023 1 [employer] (POS) [id number] Jordyn Moreno [id number] 2 Guillermo Moreno 04/28/2024 1 [employer] (POS) [id number] Jordyn Moreno [id number] 2 Guillermo Moreno Notes Date Note Type Note Provider Name and Address Organization Details Recorded Time 09/10/2023 text/html Hypertension F/UReported bypatient.Medications: taking medications as directed; no side effects from medication Lifestyle:regular exercise; limiting/avoiding salt; compliant with low salt diet Associated Symptoms:no dizziness; no lightheadedness; no chest pain; no shortness of breath; no palpitations; no edema; no calf pain with exertion; no headacheMedicare Annual Wellness VisitReported bypatient.Diet and Nutrition:healthy diet Fracture Risk:no history of fractures; no recent explained fracture; no sudden unexplained fractures; no previous musculoskeletal injuries Physical Activity:exercises on a regular basis; recent increase in physical activity; good physical condition; discussed exercise habits Depression Risk:never feels sad, empty, or tearful; no loss of interest in activities; no significant changes in weight; no sleep disturbances or insomnia; no agitation; no loss of energy; no feelings of worthlessness or guilt; no thoughts of suicide; no history of depression; no history of mood disorders Orientation:no disorientation to time; no disorientation to date; no disorientation to place Concentration and Memory:no decreased concentrating ability; no memory lapses or loss; does not forget words Speech/Motor difficulties:no speech difficulties; no difficulty expressing formulated concepts; no difficulty with fine manipulative tasks; no difficulty writing/copying; no slowed reaction time; does not knock things over when trying to pick them up Hearing:no loss of hearing Vision:no vision problems Falls Risk Assessment:no frequent falls while walking; no fall in the past year; no dizziness/vertigo Home Safety:use of seatbelts; no vision or hearing loss while driving Scott Tapia MD [address], [address], [facility] 09/10/2023 10:11:02 04/28/2024 text/html Hypertension F/UReported bypatient.Medications: taking medications as directed; no side effects from medication Lifestyle:regular exercise; limiting/avoiding salt; compliant with low salt diet Associated Symptoms:no dizziness; no lightheadedness; no chest pain; no shortness of breath; no palpitations; no edema; no calf pain with exertion; no headache Scott Tapia MD [address] [address], [place], [address], [facility] 04/28/2024 12:08:20
[2024-09-20 08:36] VITALS: BP 137/81; PULSE 62; RESP 17; TEMP 35.8; O2SAT 97
== END 2024-09-20 08:50 | disposition home or self-care (01) ==
PROVIDERS: Emergency Provider Nurse Practitioner Family; PCP Internal Medicine
DX: L03.114 Cellulitis of left upper limb (principal); I10 Essential (primary) hypertension; E78.00 Pure hypercholesterolemia, unspecified; G47.30 Sleep apnea, unspecified; K21.9 Gastro-esophageal reflux disease without esophagitis; E03.9 Hypothyroidism, unspecified
CPT/HCPCS: 99203; G0463

== ENCOUNTER 2024-09-27 18:47 | Emergency (ER) | payer OTHER, SELFPAY ==
--- NOTE | 2024-09-27 18:50 | ED.SKABFB ---
HPI - Skin/Abscess/Foreign Bdy General Chief complaint: Skin/Abscess/Foreign Body Stated complaint: boil Time Seen by Provider: 09/27/24 18:50 Source: patient Mode of arrival: ambulatory Limitations: no limitations History of Present Illness HPI narrative: Patient is a 64-year-old male who presents with redness and swelling to left upper arm. Patient had Dexcom placed 09/14 took it off 09/17. Was seen here 09/20 for cellulitis of area and was given clindamycin. Antibiotics should have ended today day but patient states they ran out on Friday. Does report that area of redness has decreased in size and swelling but is color depositing machine tender to touch and painful to move arm. Denies any numbness, tingling or weakness to the distal portion of the arm. Drainage from wound started today. Denies any fever, chills, nausea, vomiting, diarrhea. Related Data Home Medications Medication Instructions Recorded Confirmed Last Taken Type anastrozole 1 mg tablet mg 09/20/24 Unknown History doxazosin 2 mg tablet mg 09/20/24 Unknown History gemfibrozil 600 mg tablet mg 09/20/24 Unknown History icosapent ethyl 1 gram capsule g PO 09/20/24 Unknown History levothyroxine 75 mcg tablet mcg 09/20/24 Unknown History potassium chloride 10 mEq meq 09/20/24 Unknown History capsule,extended release pregabalin 100 mg capsule mg 09/20/24 Unknown History rosuvastatin 10 mg tablet mg 09/20/24 Unknown History testosterone cypionate 200 mg/mL mg 09/20/24 Unknown History intramuscular oil Allergies Allergy/AdvReac Type Severity Reaction Status Date / Time Penicillins Allergy Mild Hives Verified 09/27/24 18:56 rosuvastatin AdvReac Intermediate Joint Pain Verified 09/27/24 18:56 Review of Systems Review of Systems: All systems reviewed & are unremarkable except as noted in HPI and below Constitutional: Constitutional: Denies body ache(s), Denies chills, Denies fatigue, Denies fever(s), Denies headache(s), Denies malaise and Denies weakness Eyes: Eyes: Denies blurry vision, Denies irritation and Denies loss of vision ENT: Denies otalgia, Denies headache(s), Denies nasal discharge, Denies sinus pain and Denies sore throat Cardiovascular: Cardiovascular: Denies chest pain, Denies irregular heart rhythm and Denies dyspnea Respiratory: Respiratory: Denies dyspnea Gastrointestinal: Gastrointestinal: Denies abdominal pain, Denies melena, Denies hematochezia, Denies diarrhea, Denies nausea and Denies vomiting Musculoskeletal: Musculoskeletal: Denies back pain, Denies myalgias and Denies arthralgias Integumentary/Breasts: Skin/Breast: Denies pruritus, Denies rash and Reports wounds Neurologic: Denies headache(s), Denies loss of vision and Denies weakness Psychiatric: Psychiatric: Reports no additional psychiatric complaints Endocrine: Endocrine: Denies fatigue [facility] Family History Family History Father Family history of diabetes mellitus in first degree relative Mother Family history of diabetes mellitus in first degree relative Other Diabetes mellitus Family history of cardiovascular disease Social History Social History Smoking status: Never smoker Alcohol intake: current Comments At time of signature, agree with nursing past medical, surgical, social and family history. There is no relevant family history pertinent to the presenting complaint. Exam Const: General: cooperative, healthy appearing, comfortable, no acute distress and well nourished Nutritional Appearance: well nourished Orientation/consciousness: patient oriented x3 Limitations: no limitations HENMT: Head: normal to inspection, normocephalic and atraumatic Ears: hearing grossly normal bilaterally and external ears normal Face/Nose/Sinus: Normal external nose present, normal facial exam and face symmetric Face and sinus: normal facial exam and face symmetric Mouth: Yes lip normal Eyes: General: appearance normal, both eyes and all related structures Alignment and Position: alignment normal and position normal Periorbital: periorbital findings normal Eyelids: eyelids normal Pupils: Equal, round and reactive pupils present EOM: EOMs intact bilaterally Neck: Neck: normal visual inspection, full ROM and supple Chest: Chest palpation & inspection: normal inspection of the chest Resp: Effort & Inspection: normal respiratory effort and able to speak in complete sentences Auscultation: clear to auscultation bilaterally Cardio: Rate: regular rate Rhythm: regular rhythm Heart sounds: S1 normal heart sound present and S2 normal heart sound present GI: Inspection: normal to inspection Skin: General skin exam: normal color Full body images:  1. wound opening 0.5 cm diameter. Area of redness and induration 4 cm by 4 cm. No area of fluctuation, no red streaking up the arm. Neuro: General: patient oriented x3 and moves all extremities Cranial nerves: Yes Equal, round and reactive pupils present Speech: normal speech Gait exam (Neuro): Normal gait present Extrem: General: normal to inspection, full ROM and no edema Psych: Appearance: grossly normal and well kempt Mental Status: mental status grossly normal Speech and movement: Normal speech and movement present Affect: normal affect Attitude: cooperative Thought process: Normal thought process present Course Course Emergency Course: Patient is aware of diagnosis, understands and agrees to treatment plan. Anticipatory guidance given. Patient agrees to follow-up as directed and is aware of reasons to seek care at the emergency department. Portions of this record may have been created with voice recognition software Level of Care: Express Care Visit Vital Signs Vital signs: Reviewed MDM - Skin/Abscess/Foreign Bdy MDM Narrative Medical decision making narrative: Since patient does report improvement with antibiotics, will extend course of clindamycin and add doxycycline. Light sensitivity instructions provided. Wound culture obtained from drainage Pt well hydrated appearing, in no respiratory distress, hemodynamically stable. Recommend supportive care. The patient is stable at time of discharge the clinical impression was discussed and the patient was given the opportunity to ask questions, which were addressed as completely as possible given the information available at present. Anticipatory guidance and return to care precautions were discussed and the importance of primary care follow-up was stressed and encouraged. The patient voiced understanding of the plan, indications to return, and the need for follow-up. Exam findings show no acute concerns or changes Patient is appropriate for outpatient treatment and follow-up. Differential Diagnosis Differential diagnosis: Likely abscess of skin or subcutaneous tissue, allergic reaction to drug, cellulitis and contact dermatitis Medical Records Attestation: I reviewed the patient's medical records. Discharge Plan Discharge Clinical Impression: Cellulitis Qualifiers: Site of cellulitis: extremity Site of cellulitis of extremity: upper extremity Laterality: left Qualified Code(s): L03.114 - Cellulitis of left upper limb Patient Disposition: Home Condition: Stable Instructions: Cellulitis (ED) Additional Instructions: Please follow up with your Primary Care Doctor within 48-72 hours - call for an appointment. Rest and elevate affected area; apply moist heat 3-4 times daily for 10-15 minutes. Take Motrin 600mg every 8 hours with food for pain. Please take Antibiotics as directed. If you experience any worsening redness, swelling, streaking (red lines), fever or chills please go to the ER You have been prescribed Doxycycline today.It may make your skin more sensitive to sunlight than normal. Make sure you wear sunscreen at all times when outside while on the medication. Your blood pressure was elevated above 120/80 today at Urgent Care. This puts you above the threshold for follow up visit with a primary care provider. High blood pressure does not usually cause any symptoms, however it may lead to kidney failure, stroke, heart disease just to name a few if untreated . Many people are anxious when seeing a provider or nurse. As a result, you are not diagnosed with hypertension at this time unless your blood pressure is persistently high at two office visits at least one week apart. Some things that can help lower blood pressure are lifestyle modifications, such as light exercise, decreased salt in diet, and weight loss. It is important to follow up with a PCP about this within 1 week. Patient Language: Japanese Prescriptions: New clindamycin HCl 300 mg capsule 300 mg PO Q8H 10 Days Qty: 30 0RF doxycycline monohydrate 100 mg tablet 100 mg PO BID 10 Days Qty: 20 0RF No Action anastrozole 1 mg tablet potassium chloride 10 mEq capsule, extended release levothyroxine 75 mcg tablet gemfibrozil 600 mg tablet testosterone cypionate 200 mg/mL oil doxazosin 2 mg tablet rosuvastatin 10 mg tablet pregabalin 100 mg capsule icosapent ethyl 1 gram capsule PO Follow-up/Referrals: Willie,MD Scott [Primary Care Provider] - 3 Days Time of Disposition: 19:11
--- OUTSIDE RECORDS SUMMARY | 2024-09-27 18:51 | XMS_ITS | Data Portability ---
Author Organization [place] - [facility] OFFICE Address [address] [place] [address] Care Team Providers Care Shaker Tender Name Role Phone KENZIENATALIE BARRETT Primary Care [...] Orders Crestor 10 mg tablet 2023 024 [facility] 000, [id number], [address], 11/08/2023 10:52:46 Patient TargetsNo targets recorded. Patient Instructions Encounter Date Encounter Id Patient Instructions Last Modified By Organization Details Last Modified Time 11/08/2023 [id number] Weight loss 20 pounds Exercise advised Low cholesterol diet advised Low sodium diet advised. [email or web address] Not available 11/08/2023 10:52:47 12/06/2023 [id number] Exercise advised Low cholesterol diet advised Low [...] Organization Details Recorded Time Benign hypertensio n 84218136 Active 2023 Vero Kaur null, [place] - [facility] 4 09:04:44 Obstructive sleep apnea of adult 3387942308402 Active 2023 Vero K[place], [place] [facility] 4 09:04:59 Family history of diabetes mellitus 907268129 Active 2023 Vero [place] - [facility] 4 09:03:07 Lumbago with sciatica 496196786 Active 2023 Vero Mesto [place] [facility] 4 09:03:08 Mixed hyperlipide denice 319833522 Active 2023 Vero M[place] [facility] 4 09:04:54 Chronic low back pain 228348030 Active 2023 Vero [place] [facility] 4 09:04:49 Prostate specific antigen above reference range 798343714 Active 2023 Vero Millerto [place], [place] - [facility] 4 09:03:08 Hypothyroid ism 78497985 Active 2023 Vero [place] [facility] 4 09:04:52 Statin not tolerated 109667561 Active 2023 Vero [place] [facility] 4 09:03:08 Hypogonadis m 49194767 Active 2023 Vero Kaur [place], [place] - [facility] 4 09:03:08 Coronary arterioscle rosis 61974552 Active 2023 [facility] 4 09:03:08 Liver enzymes level above reference range 529361330 Active 2023 Pham Mes null, [facility] 4 09:03:08 Insulin resistance 217803769 Active 2023 [facility], [facility] 4 09:03:08 Problem Notes None recorded. Procedures Surgical History None recorded. Imaging Results Imaging Date Name Status LastModified by Organization Details LastModified Time 09/10/2023 electrocardiogram completed Informa tion not available 11/11/2023 10:26:48 07/19/2023 CT, angiogram, coronary arteries, w/ contrast completed [email or web address] Information not available 11/11/2023 10:30:30 11/25/2023 [email or web address]ation not available 11/29/2023 14:54:59 05/25/2024 electrocardiogram completed [email or web address] Informa tion not available 05/26/2024 10:20:11 Procedure Notes None recorded. Medical Equipment None Reported. Allergies Allergen ID Allergen Name Allergen Category Reaction Reaction Severity Criticality Documentation Date Start Date Code Code System Note Provider Name and Address Organization Details Recorded Time 81563 Product containin g penicilli n (product) medicatio n rash Not available Not available 11/06/2023 31501 8001 SNOMED [facility] 4 09:02:46 76775 mold extract medicatio n rash Not available Not available 11/06/2023 32849 8 RxNorm [facility], [facility] 4 09:02:46 71185 Product containin g 3-hydroxy -3-methyl glutaryl- coenzyme A reductase inhibitor (product) medicatio n myalgias (muscle pain) Not available Not available 11/06/2023 52920 009 SNOMED Pham [facility], [facility] 4 09:02:46 Medications Name Sig Start Date [...] Updated DateTime 4 177.8 cm 31 kg/m2 17437.9 5 g 51 /min 92 % 92 % 127 mm[Hg] 81 mm[Hg] Angela Knight [place] - [facility] 4 10:31:44 Date Recorded Body height Body mass index (BMI) Body weight Heart rate Oxygen saturation Oxygen saturation in Arterial blood by Pulse oximetry Systolic blood pressure Diastolic blood pressure Provider Name and Address Organization Details Last Updated DateTime 4 177.8 cm 30.9 kg/m2 62045.5 1 g 65 /min 98 % 98 % 142 mm[Hg] 82 mm[Hg] Aylin Marquez [facility] 4 09:04:49 Date Recorded Body height Body mass index (BMI) Body weight Heart rate Oxygen saturation Oxygen saturation in Arterial blood by Pulse oximetry Systolic blood pressure Diastolic blood pressure Provider Name and Address Organization Details Last Updated DateTime 5 177.8 cm 28.5 kg/m2 89556.4 4 g 60 /min 97 % 97 % 144 mm[Hg] 93 mm[Hg] Roslyn Dove [facility] 5 11:56:40 Social History Question Answer Notes LastModified by [employer] Details LastModified Time Tobacco Smoking Status Never Smoker Angela Eugene jansen [facility] 11/08/2023 10:29:08 What Is Your Relationship Status? esto Information not available 11/06/2023 Sex: Unknown Functional Status Question Answer Note LastModified by [employer] Details LastModified Time Do you use any [...] Medical History Condition Response Thyroid Disease Y Hypertension Y Sleep Apnea Y High Cholesterol Y Immunizations Vaccine Type Date Status Note Provider Nam e and Address Organization Details Recorded Time influenza, unspecified formulation 02/10/2020 completed Vero jansen [facility] 11/06/2023 09:03:14 Td(adult) unspecified formulation 05/12/2015 completed Vero jansen [facility] 11/06/2023 09:03:14 Past Encounters Encounter ID Performer Location Encounter Start Date Encounter Closed Date Diagnosis/Indication Diagnosis SNOMED-CT Code Diagnosis ICD10 Code Diagnosis Note [id number] Eliezer Aguirre MD [facility] [address] [place], [place] [address] 11/08/2023 09:38:05 11/08/2023 10:57:38 Coronary arteriosclerosis 80964706 I25.10 Treadmill Myoview Stress test, has high [place] Risk score. Has Known CAD, or CAD risk equivalent . To look for any ischemia. Benign hypertension 1072 5009 I10 Mixed hyperlipidemia 267 223733 E78.2 LDL 178 Obstructiv e sleep apnea of adult 3185511164 103 G47.33 Hypothyroidism 55342186 E03.9 [id number] Eliezer Aguirre MD [facility] [place] [address] 12/06/2023 08:57:07 12/06/2023 09:24:31 Coronary arteriosclerosis 06656437 I25.10 Had Negative stress test on 11/25/23 with Normal LV systolic function. Exercise tolerance: Good. LVEF: 53%. Benign hypertension 1072 5009 I10 Mixed hyperlipidemia 267 392752 E78.2 LDL 178 , Needs to keep LDL less than 70, and HDL more than 40Will get fasting lipids for follow up Obstructiv e sleep apnea of adult 6618401725 103 G47.33 on Cpap Hypothyroidism 75683699 E03.9 [id number] Eliezer Aguirre MD [facility] [place] [address] 05/25/2024 11:05:03 05/25/2024 12:15:24 Coronary arteriosclerosis 62468399 I25.10 Had Negative stress test on 11/25/23 with Normal LV systolic function. Exercise tolerance: Good. LVEF: 53%. Benign hypertension 1072 5009 I10 Mixed hyperlipidemia 267 015207 E78.2 LDL 178 , Needs to keep LDL less than 70, and HDL more than 40Will get fasting lipids for follow up Obstructiv e sleep apnea of adult 6696749424 103 G47.33 on Cpap Hypothyroidism 67930823 E03.9 Health Concerns Section Related Observation LastModified by Organization Detai ls LastModified Time None Recorded Concern Status LastModified by Organization Details LastModified Time None Recorded Advance Directives Directive None Recorded Payers Insurance Date Sequence Insurance Name Policy Number Policy Aponte Covered Member ID Aponte Member ID Guarantor Name 05/22/2024 1 [employer] (POS) [id number] Jordyn Moreno [id number] Guillermo Moreno Notes Date Note Type [...] 178 was done 10/03/23 Eliezer Aguirre MD [facility] [place], [address], [facility] 11/08/2023 10:53:12 4 [...] calcium scoring Eliezer Aguirre MD [address] [place], [address], [place] [facility] 12/06/2023 09:20:11 5 text/html [...] calcium scoring Eliezer Aguirre MD [address] [facility], [place], [address], [place] [facility] 05/25/2024 12:08:04
--- OUTSIDE RECORDS SUMMARY | 2024-09-27 18:51 | XMS_ITS | Clinical Summary ---
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
--- OUTSIDE RECORDS SUMMARY | 2024-09-27 18:51 | XMS_ITS | Encounter Summary ---
Author Organization [facility] Address [address] [place] [address] Care Team Providers Care Parole Supervisor Name Role Phone Conner Carter MD Primary Care Provider [phone] Juliano Prajapati MD Unavailable [phone] Sherwin Venegas MD Unavailable [phone] Stalin Escalante MD Unavailable [phone] Jayleen Negron PA-C Unavailable [phone] Peter Holt DO Primary Care Provider Glo Damon [facility] Primary Care Provid er Scott Tapia MD Primary Care Provider [phone] Encounter Details Date Type Department Care Team (Latest Contact Info) Description 03/17/2018 Abstract [facility] , Heather Copeland MD Social [...] Rule Out 03/21/2020 03/21/2020 03/22/2020 5:56 PM CIAIO LUMITE INJECTOR COVID-19 Rule Out 04/02/2020 04/02/2020 04/03/2020 1:46 PM CIAIO LUMITE INJECTOR COVID-19 Rule Out 06/30/2020 06/30/2020 07/01/2020 9:21 AM CIAIO LUMITE INJECTOR documented as of this encounter Care Teams Parole Supervisor Relationship Specialty Start Date End Date Conner Carter MD PCP - General 06/25/16 10/01/21 Peter Holt DO [address] [place] [address] PCP - General FAMILY PRACTICE 10/02/21 08/17/23 Glo Damon, [facility] [address] [place] [address] PCP - General Nurse Practitioner Family 08/18/2311/09 Scott Tapia MD [address] [place] [address] [address] [place] [address] PCP - General INTERNAL MEDICINE 11/28/23 Juliano Prajapati MD SURGERY 03/20/18 Sherwin Venegas MD [address] [place], [place] [id number] Referring Physician OTOLARYNGOLOGY 03/20/18 Stalin Escalante MD [address] [place] [address] CLINICAL ASSOCIATE 03/20/18 Jayleen Negron, ALEXC [address] [place] [address] PHYSICIAN DAIRY FARM MANAGER 03/25/18 Dr. Tommie Perez GASTROENTEROLOGY 03/20/18 documented as of this encounter
--- OUTSIDE RECORDS SUMMARY | 2024-09-27 18:51 | XMS_ITS | Encounter Summary ---
Author Organization [facility] Address [address] [place] [address] Care Team Providers Care Shoemaker Apprentice Name Role Phone Unavailable Primary Care Provider Unavailabl e Encounter Details Date Type Department Care Team (Late st Contact Info) Description 11/05/2019 Lab Requisition [facility] DermPath Lab [address] [place] [address] Ashvin Smith MD [address] [place] [address] Social History Tobacco Use Types Packs/Day Years Used Date Smoking Tobacco: Never Alcohol Use Standard Drinks/Week Comments Yes 0 (1 standard drink = 0.6 oz pur e alcohol) Socially Sex and Gender Information Value Date Recorded Sex Assigned at Not on file Legal Sex Male 9:12 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 SKIN, left chin: DERMAL SCAR (L90.5) PRESENT AT MARGIN (see microscopic description) 0 9:09 AM CDT DERMATOPATHOLOGY LABORATORY at 0909 CDT Clinical History Recurrent cyst. Path#[id number]. Check margins 0 9:09 AM CDT DERMATOPATHOLOGY [...] characteristic determined by the Dermatopathology Laboratory at [facility], directed by Dr. Yasir Bond. These tests need not be, and therefore are not, approved by the [place] Food and Drug Administration. The tests are used for clinical purposes. Billing Codes Specimen Charges Stain Charges 03355 1 0 9:09 AM CDT DERMATOPATHOLOGY LABORATORY Embedded Images 0 9:09 AM CDT DERMATOPATHOLOGY LABORATORY Pathology/Cytolog y TISSUE SPECIMEN FROM SKIN / Unknown 11/04/2019 11/05/2019 11:57 AM CDT us Ashvin Smith MD LAB - PATHOLOGY/CYTOLOGY ORDER BEBETO Final Result DERMATOPATHOLOGY LABORATORY [facility] - Department of Dermatology Social Worker Health Services [place] [id number] [place] [address] documented in this encounter Visit Diagnoses Not on filedocumented in this encounter
--- OUTSIDE RECORDS SUMMARY | 2024-09-27 18:51 | XMS_ITS | Clinical Summary ---
Author Organization [facility] Address [address] [place] [address] Care Team Providers Care Health Administration Teacher Name Role Phone Unavailable Primary Care Provider Unavailabl e Source Comments [facility],non-owned Affiliates and Associated Physician Practices is amultiple site organization consisting of ambulatory clinics and hospital sitesin [place], [place], [place] and [place]. This disclosure is being madepursuant to the Care Everywhere program and may not contain all information available regarding this patient. Last updated 18.[facility] Allergies Active Allergy Reactions Criticality Noted Date [...] PO) Take by mouth. 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
--- OUTSIDE RECORDS SUMMARY | 2024-09-27 18:51 | XMS_ITS | Continuity of Care Document ---
Author Organization [facility] Address [address] [place] [address] Phone Care Team Providers Care Manager Net Name Role Phone Seth Leo MD Unavailable Unavailable Allergies, Adverse Reactions, Alerts Substance Reaction Status Criticality Clocvdd-WOY-MaK Reductase Inhibitors Acti ve No Information Penicillins Active No Information Medications Medication Instructions Dosage Effective Dates (start - stop) Status Comments Percocet 5 mg-325 mg tablet take 1 tablet by oral route every 6 hours as needed 1.00 tablet - Active pregabalin 100 mg capsule - Active levothyroxine 75 mcg tablet TAKE 1 TABLET BY MOUTH IN EVERY MORNING ON EMPTY STOMACH X 30 MINTUES - Active Trulicity 3 mg/0.5 mL subcutaneous pen injector - Active amitriptyline 10 mg tablet - Active Vascepa 1 gram capsule - Act kaci doxazosin 2 mg tablet - Acti ve fenofibrate nanocrystallized 48 mg tablet - Active naltrexone 50 mg tablet TAKE 1 TABLET BY MOUTH DAILY FOR 18 DAYS - Active chlorhexidine gluconate 0.12 % mouthwash - Active metronidazole 500 mg tablet TAKE 1 TABLET BY MOUTH TWICE DAILY UNTIL FINISHED. - Active ondansetron HCl 4 mg tablet TAKE 1 CAPLET BY MOUTH EVERY 4-6 HOURS DAILY NEEDED. - Active Trulicity 1.5 mg/0.5 mL subcutaneous pen injector - Active chlorzoxazone 500 mg tablet - Active Sure Comfort Insulin Syringe 1 mL 31 gauge x 16 USE DIRECTED FOR SUBCUTANEOUS INJECTIONS - Active ANASTROZOLE (unknown strength) take 1 tablet by oral route every day Not Available - Active lidocaine 5 % topical patch apply 1 patch by topical route every day (May wear up to 12hours.) 1.00 patch - Active Metanx (algal oil) 3 mg-35 mg-2 mg-90.314 mg capsule - Active PREGNYL (unknown strength) inject by intramuscular route 3 times every week for 3 months Not Available - Active SYNTHROID (unknown strength) take 1.5 tablet by oral route every day Not Available - Active vardenafil 10 mg tablet take 1 tablet by oral route every day as needed approximately 1 hour before sexual activity 10 MG - Active aspirin 81 mg chewable tablet chew 1 tablet by oral route every day 81 MG - Active aloe vera 25 mg capsule - Active FIBER (unknown strength) Not Available - Active DHEA 25 mg tablet - Active Flonase Allergy Relief 50 mcg/actuation nasal spray,suspension spray 1 - 2 spray by intranasal route every day in each nostril as needed 50-100 MCG - Active Garlipure 600 mg tablet - Active green tea leaf extract 500 mg capsule - Active KELP (unknown strength) Not Available - Ac tive iron ER 159 mg (45 mg iron) tablet,extended release - Active L-Arginine Men's Health 1,000 mg-16.6 mcg-66.6 mcg tablet - Active MAGNESIUM (unknown strength) Not Available - Active MELATONIN (unknown strength) Not Available - Active METHYL B-12 AND FOLATE (unknown strength) Not Available - Active MULTIVITAMIN (unknown strength) Not Available - Active PROBIOTIC (unknown strength) Not Available - Active potassium citrate (replacement) 99 mg capsule - Active Vitamin C oral powder - Active K2-D3 5000 (unknown strength) Not Available - Active ZINC CHELATED (unknown strength) Not Available - Active KEV-e 400 mg tablet - Active Testone CIK 200 mg/mL intramuscular kit inject 0.25 milliliter by intramuscular route every 4 weeks 50 MG - Active phosphatidylserine 100 mg capsule - Active Zinc-15 66 mg tablet - Active PREGNENOLONE (unknown strength) Not Available - Active Procedures Procedure Date POSTOP FOLLOW-UP VISIT POSTOP FOLLOW-UP VISIT REPAIR BICEPS TENDON Arm Sling OFFICE/OUTPATIENT VISIT EST RADEX SPI CRV 2/3 VIEWS OFFICE/OUTPATIENT VISIT EST RADEX SEAN COMPL MINIMUM 2 VIEWS 023 US NDL PLMT IMG S&I Betamethasone acet&sod phosp INJ TENDON ORIGIN/INSERTION OFFICE/OUTPATIENT VISIT NEW Advance Directives Directive Yes / No Effective Date File Name Resuscitation Not Answered N/A N/A Life Support Not Answered N/A N/A Intubation Not Answered N/A N/A Antibiotics Not Answered N/A N/A IV Fluid Support Not Answered N/A N/A Tube Feed Not Answered N/A N/A Other Directive N/A N/A WARNING:The information contained in this section is historical and is provided for information only and does not constitute a legal document or any assurance that the information is still accurate. Please verify the information with the don of the legal document before using it for clinical purposes. Encounters Encounter Description Practice Location Reason(s) For Visit Diagnoses Date Provider Providers Copied on Encounter [facility], [address] [address], [place], [address], tel:[phone] [facility] Status post surgeryBicipital tendinitis, left shoulder Jul-0 5- 4 Ahmet Seth. [address], [place], [place], [id number] , [place]. tel: [phone] [facility], [address], [place], [address], [place] tel:[phone] [facility] Bicipital tendinitis, left shoulderStatus post surgery Fe-0 6- 4 Ahmet Seth. [address], [place], [place], [id number] , [place]. tel: [phone] [facility], [address], [place], [address], [place] tel:[phone] [facility] Bicipital tendinitis, left shoulder Lee-2 3-202 4 Ahmet Seth. [address], [place], [place], [id number] , [place]. tel: [phone] [facility], [address], [place], [address], [place] tel:[phone] [facility] Biceps tendinitis of left upper extremity 3 Ahmet Ann. [address], [place], [place], [id number] , [place]. tel: [phone] OFFICE/OUTPA TIENT VISIT EST [facility], [address], [place], [address], [place] tel:[phone] [facility] Biceps tendinitis of left upper extremityLeft cervical radiculopathy 3 Ahmetdeepa Ann. [address], [place], [place], [id number] , [place]. tel: [phone] OFFICE/OUTPA TIENT VISIT EST [facility], [address], [place], [address], [place] tel:[phone] [facility] Biceps tendinitis of left upper extremityLeft cervical radiculopathy 3 Nikita Escudero. [address], [place], [address], [place]. tel: [phone] OFFICE/OUTPA TIENT VISIT NEW [facility], [address], [place], [address], [place] tel:[phone] [facility] Body mass index [BMI]30.0-30.9, adultBiceps tendinitis of left upper extremity 0- 3 Ahmet Ann. [address], [place], [place], [id number] , [place]. tel: [phone] Family History Family Member Type Diagnosis Age At Onset Mother Problem Hypertension Sister Problem Alive and well Father Problem Hypertension Father Problem Cardiovascular disease Mother Problem Diabetes mellitus Father Problem Diabetes mellitus Payers Payer name Insurance type Covered alliance party ID Authoriza tion(s) Aet[employer] Choice POS II E2 OT [id number] Social History Type Description Quantity Date Captured Comments Alcohol Use Details Unknown Caffeine Use Details Unknown Tobacco Use Status Current non-smoker Smoking Status Never smoker Non-Smoking Tobacco Use Details : No Details Available : No Details Available Sex Male Chief Complaint And Reason For Visit No Information Reason For Referral Reason For Referral No Information Plan Of Treatment Date Type Action Status Goal Dietary management education , guidance, and counseling completed Referral Ordered: Jeffy Peñaloza -[facility]opathic [facility] Osteopathic Physicians : Physical Medicine & Rehabilitation (related to Left cervical radiculopathy) ordered Referral Referred To: Jeffy Peñaloza [address] [place], [phone] Ordered: Referrals: Allopathic & Osteopathic Physicians : Physical Medicine & Rehabilitation. Jeffy Peñaloza. Evaluate and treat ordered Referral Ordered: RADEX SPI CRV 2/3 VIEWS LT c-spine ordered Referral Ordered: MRI Spine w/o Contrast-Cervical LT C-SPINE Appointment date/timeframe: 04/10/2023 ordered Referral Ordered: RADEX SEAN COMPL MINIMUM 2 VIEWS LT shoulder ordered History Of Present Illness Encounter Date Complaint History Of Prese nt Illness No Information Functional Status Date Functional Assessmen t No Information Instructions Date Instruction Additional Infor mation Dietary management e ducation, guidance, and counseling Related to Body mass index [BMI] 30.0-30.9, adult Assessments Type Assessment Date assessment Status post surgery assessment Bicipital tendinitis, left shoul new Patient Care Teams Name Effective Dates (start - stop) Status Members No Information
--- OUTSIDE RECORDS SUMMARY | 2024-09-27 18:51 | XMS_ITS | Encounter Summary ---
Author Organization [facility] Address [address] [place] [address] Care Team Providers Care Stock Holder Name Role Phone Conner Carter MD Primary Care Provider Juliano Prajapati MD Unavailable [phone] Sherwin Venegas MD Unavailable [phone] Stalin Escalante MD Unavailable [phone] Jayleen Negron PA-C Unavailable [phone] Peter Holt DO Primary Care Provider Glo Damon [facility] Primary Care Provid er Scott Tapia MD Primary Care Provider [phone] Encounter Details Date Type Department Care Team (Late st Contact Info) Description 06/27/2020 Prep for Procedure [facility] [address] [place], [place] [id number] [place] [address] [place] [address] Social History Tobacco Use Types [...] COVID-19? No / Unsure 06/30/2020 12:00 PM ACTIVE DIRECTORY SYSTEMS ADMINISTRATOR documented as of this encounter Plan of Treatment Not on file documented as of this encounter Results * MRSA SCREENING (06/30/2020 12:09 PM ACTIVE DIRECTORY SYSTEMS ADMINISTRATOR) SPEC DESCRIPTION NASAL 06/30/2020 12:01 PM ACTIVE DIRECTORY SYSTEMS ADMINISTRATOR [facility] SPECIAL REQUESTS NO SPECIAL REQUEST 06/30/2020 12:01 PM ACTIVE DIRECTORY SYSTEMS ADMINISTRATOR [facility] CULTURE RESULT NO METHICILLIN RESISTANT STAPH AUREUS ISOLATED 07/01/2020 12:21 PM ACTIVE DIRECTORY SYSTEMS ADMINISTRATOR [facility] SPECIMEN FROM INTERNAL NOSE / Unknown 06/30/2020 12:09 PM ACTIVE DIRECTORY SYSTEMS ADMINISTRATOR 06/30/2020 12:10 PM ACTIVE DIRECTORY SYSTEMS ADMINISTRATOR Bill Cornejo MD MICROBIOLOGY - GENERAL ORDERABLE S Final Result [facility] [address] [place] [address], * PRE-SURGICAL/PRE-PROCEDURE CORONAVIRUS (COVID 19) (06/30/2020 12:09 PM ACTIVE DIRECTORY SYSTEMS ADMINISTRATOR) CORONAVIRUS SARS COV 2 PCR (RESP) NOT DETECTED NOT DETECTED 07/01/2020 9:21 AM ACTIVE DIRECTORY SYSTEMS ADMINISTRATOR [facility] Comment: A Not Detected (negative) test result [...] providers and patients using the following websites: https://www.AFFiRiS.SweetSlap/home/Covid-19/HCP/QuestIVD/fact- sheet.html https://www.AFFiRiS.SweetSlap/home/Covid-19/Patients/ QuestIVD/fact-sheet.html This test has been authorized by the FDA under an Emergency Use Authorization (EUA) for use by authorized laboratories. Due to the current public health emergency, [facility] is receiving a high volume of samples [...] about COVID-19 can be found at the [facility] website: www.Troika Networks.SweetSlap/Covid19. Test performed at [facility] [place] [address] [place] [address] Director: JOHN JOE DO,MPH FIRST TEST UNKNOWN 06/30/2020 12:01 PM [facility] EMPLOYED IN HEALTHCARE NO 06/30/2020 12:01 PM [facility] SYMPTOMATIC DEFINED BY CDC NO 06/30/2020 12:01 PM [facility] DATE OF SYMPTOM ONSET UNKNOWN 06/30/2020 12:18 PM [facility] HOSPITALIZATION STATUS NO 06/30/2020 12:01 PM [facility] PATIENT IN ICU NO 06/30/2020 12:01 PM ACTIVE DIRECTORY SYSTEMS ADMINISTRATOR [facility] RESIDENT OF [facility] NO 06/30/2020 12:01 PM ACTIVE DIRECTORY SYSTEMS ADMINISTRATOR [facility] UNKNOWN 06/30/2020 12:18 PM ACTIVE DIRECTORY SYSTEMS ADMINISTRATOR [facility] PATIENT'S RACE WHITE OR 06/30/2020 12:01 PM ACTIVE DIRECTORY SYSTEMS ADMINISTRATOR [facility] ETHNICITY NONHISPANIC 06/30/2020 12:01 PM ACTIVE DIRECTORY SYSTEMS ADMINISTRATOR [facility] SOURCE (QST) NASOPHARYNGEAL SWAB 06/30/2020 12:01 PM ACTIVE DIRECTORY SYSTEMS ADMINISTRATOR [facility] NASOPHARYNGEAL SWAB / Unknown 06/30/2020 12:09 PM ACTIVE DIRECTORY SYSTEMS ADMINISTRATOR us Bill Cornejo MD MICROBIOLOGY - GENERAL ORDERABLE S Final Result Performing Organization Address City/State/[facility] Co de Phone Number [facility] [address] [place] [address], [place] [phone] [facility] [address] [place] [address], documented in this encounter Visit Diagnoses Diagnosis Preop testing- Primary Preoperative examination, unspecified documented in this encounter Additional Health Concerns Infection Onset Date Last Indicated Resolved Time COVID-19 Rule Out 06/30/2020 06/30/2020 07/01/2020 9:21 AM ACTIVE DIRECTORY SYSTEMS ADMINISTRATOR documented as of this encounter Care Teams Stock Holder Relationship Specialty Start Date End Date Conner Carter MD PCP - General 06/25/16 10/01/21 Peter Holt DO [address] [place] [address] PCP - General FAMILY PRACTICE 10/02/21 08/17/23 Glo Damon FNP- [address] [place] [address] PCP - General Nurse Practitioner Family 08/18/2311/09 Scott Tapia MD [address] [facility] [address] [place] [address] PCP - General INTERNAL MEDICINE 11/28/23 Juliano Prajapati MD SURGERY 03/20/18 Sherwin Venegas MD [address] [place], [place] [address] Referring Physician OTOLARYNGOLOGY 03/20/18 Stalin Escalante MD [address] [place] [address] HEARING AID FITTER 03/20/18 Jayleen Negron, PA-C [address] [place] [id number] PHYSICIAN SKOOG MACHINE OPERATOR 03/25/18 Dr. Tommie Perez GASTROENTEROLOGY 03/20/18 documented as of this encounter
--- OUTSIDE RECORDS SUMMARY | 2024-09-27 18:51 | XMS_ITS | Encounter Summary ---
Author Organization [facility] Address [address] [place] [address] Care Team Providers Care Director Of Financial Reporting Name Role Phone Conner Carter MD Primary Care Provider [phone] Juliano Prajapati MD Unavailable [phone] Sherwin Venegas MD Unavailable [phone] Stalin Escalante MD Unavailable [phone] Jayleen Negron PA-C Unavailable [phone] Peter Holt DO Primary Care Provider Glo Damon [facility] Primary Care Provid er Scott Tapia MD Primary Care Provider [phone] Encounter Details Date Type Department Care Team (Late st Contact Info) Description 2020 Prep for Procedure [facility] [address] [place] [address] Tommie Perez MD [address] [id number] Social History Tobacco Use Types Packs/Day Years [...] COVID-19? No / Unsure 04/03/2020 11:45 AM RANGE MASTER documented as of this encounter Plan of Treatment Not on file documented as of this encounter Results * PRE-SURGICAL/PRE-PROCEDURE CORONAVIRUS (COVID 19) (04/02/2020 9:18 AM RANGE MASTER) CORONAVIRUS SARS COV 2 PCR (RESP) NOT DETECTED NOT DETECTED 04/03/2020 1:46 PM RANGE MASTER [facility] Comment: A Not Detected [...] providers and patients using the following websites: https://www.Novatris.Orions Systems/home/Covid-19/HCP/QuestIVD/fact- sheet.html https://www.Novatris.Orions Systems/home/Covid-19/Patients/ QuestIVD/fact-sheet.html This test has been authorized by the FDA under an Emergency Use Authorization (EUA) for use by authorized laboratories. Due to the current public health emergency, [facility] is receiving a high volume of samples [...] about COVID-19 can be found at the [facility] website: www.Solar [employer].Orions Systems/Covid19. Test performed at [facility] [place] [address] [place] [address] Director: JOHN JOE DO,MPH FIRST TEST NO 04/02/2020 9:16 AM [facility] EMPLOYED IN HEALTHCARE NO 04/02/2020 9:16 AM [facility] SYMPTOMATIC DEFINED BY CDC NO 04/02/2020 9:16 AM [facility] DATE OF SYMPTOM ONSET UNKNOWN 04/02/2020 9:41 AM [facility] HOSPITALIZATION STATUS NO 04/02/2020 9:16 AM [facility] PATIENT IN ICU NO 04/02/2020 9:16 AM [facility] RESIDENT OF [facility] NO 04/02/2020 9:16 AM [facility] NOT 04/02/2020 9:41 AM [facility] PATIENT'S RACE WHITE OR 04/02/2020 9:16 AM [facility] ETHNICITY NONHISPANIC 04/02/2020 9:16 AM [facility] SOURCE (QST) NASOPHARYNGEAL SWAB 04/02/2020 9:16 AM [facility] NASOPHARYNGEAL SWAB / Unknown 04/02/2020 9:18 AM RANGE MASTER Tommie Perez MD MICROBIOLOGY - GENERAL ORDERABLE S Final Result [facility] [address] [place] [address], [facility] [address] [place] [address], documented in this encounter Visit Diagnoses Diagnosis Preop testing- Primary Preoperative examination, unspecified documented in this encounter Additional Health Concerns Infection Onset Date Last Indicated Resolved Time COVID-19 Rule Out 04/02/2020 04/02/2020 04/03/2020 1:46 PM RANGE MASTER COVID-19 Rule Out 06/30/2020 06/30/2020 07/01/2020 9:21 AM RANGE MASTER documented as of this encounter Care Teams Director Of Financial Reporting Relationship Specialty Start Date End Date Conner Carter MD PCP - General 06/25/16 10/01/21 Peter Holt DO [address] [place] [id number] PCP - General FAMILY PRACTICE 10/02/21 08/17/23 Glo Damon, [facility]- [address] [place] [address] PCP - General Nurse Practitioner Family 08/18/2311/09 Scott Tapia MD [address] [place] [address] [address] [place] [address] PCP - General INTERNAL MEDICINE 11/28/23 Juliano Prajapati MD SURGERY 03/20/18 Sherwin Venegas MD [address] [place] [address] Referring Physician OTOLARYNGOLOGY 03/20/18 Stalin Escalante MD [address] [place] [address] PRODUCTION SHIFT SUPERVISOR 03/20/18 Jayleen Negron PA-C [address] [place] [address] PHYSICIAN AIRCRAFT ARMAMENT MECHANIC 03/25/18 Dr. Tommie Perez GASTROENTEROLOGY 03/20/18 documented as of this encounter
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
--- OUTSIDE RECORDS SUMMARY | 2024-09-27 18:51 | XMS_ITS | Continuity of Care Document ---
Author Organization [facility] Address [address] [place] [address] Phone Care Team Providers Care Assistant Corporation Counsel Name Role Phone Sheldon Nunez MD Unavailable Unavailable Procedures Procedure Date X-RAY EXAM OF LUMBAR SPINE, A/P & LAT Ju Advance Directives Directive Yes / No Effective Date File Name No Information Encounters Encounter Description Practice Location Reason(s) For Visit Diagnoses Date Provider Providers Copied on Encounter [facility], [address], [place], [place], [id number], [place] tel:[phone] [facility] No Information Enrique Chung. [address] , [place], [place], [address], [place]. tel:[phone] Referring Provider: Vaughn Urbano MD, [address] [place], [address]. tel:[phone] Family History Family Member Type Diagnosis Age At Onset No Information Payers Payer name Insurance type Covered republican ID Authoriza ticonner(s) [facility] [id number] Social History Type Description Quantity Date Captured Comments Sex Male Smoking Status No Information Chief Complaint And Reason For Visit No Information Reason For Referral Reason For Referral No Information History Of Present Illness Encounter Date Complaint History Of Prese nt Illness No Information Functional Status Date Functional Assessmen t No Information Instructions Date Instruction Additional Infor mation No Information Assessments Type Assessment Date No Information Patient Care Teams Name Effective Dates (start - stop) Status Members No Information
--- OUTSIDE RECORDS SUMMARY | 2024-09-27 18:51 | XMS_ITS | Encounter Summary ---
Author Organization [facility] Address [address] [place] [address] Care Team Providers Care Vault Worker Name Role Phone Conner Carter MD Primary Care Provider [phone] Juliano Prajapati MD Unavailable [phone] Sherwin Venegas MD Unavailable [phone] Stalin Escalante MD Unavailable [phone] Jayleen Negron PA-C Unavailable [phone] Peter Holt DO Primary Care Provider Glo Damon [facility] Primary Care Provid er Scott Tapia MD Primary Care Provider [phone] Encounter Details Date Type Department Care Team (Late st Contact Info) Description 03/05/2013 Abstract [facility] CONVERSION [address] [place] [address] , Generic Conversion, Social History Tobacco Use [...] Rule Out 03/21/2020 03/21/2020 03/22/2020 5:56 PM [facility] EMT COVID-19 Rule Out 04/02/2020 04/02/2020 04/03/2020 1:46 PM [facility]ERG[facility]Y [facility] EMT COVID-19 Rule Out 06/30/2020 06/30/2020 07/01/2020 9:21 AM EMERGENCY [facility] EMT documented as of this encounter Care Teams Vault Worker Relationship Specialty Start Date End Date Conner Carter MD PCP - General 06/25/16 10/01/21 Peter Holt DO [address] [place] [address] PCP - General FAMILY PRACTICE 10/02/21 08/17/23 Glo Damon, [facility] [address] [place] [address] PCP - General Nurse Practitioner Family 08/18/2311/09 Soctt Tapia MD [address] [facility] [address] [place] [address] PCP - General INTERNAL MEDICINE 11/28/23 Juliano Prajapati MD SURGERY 03/20/18 Sherwin Venegas MD [address] [place], [place] [id number] Referring Physician OTOLARYNGOLOGY 03/20/18 Stalin Escalante MD [address] [place] [address] FACETOR 03/20/18 Jayleen Negron, [facility] [address] [place] [address] PHYSICIAN BREAST WORKER 03/25/18 Dr. Tommie Perez GASTROENTEROLOGY 03/20/18 documented as of this encounter
--- OUTSIDE RECORDS SUMMARY | 2024-09-27 18:51 | XMS_ITS | Clinical Summary ---
Author Organization [facility] Address [facility] access [facility] [place] [address] Care Team Providers Care Tool Sharpener Name Role Phone Juliano Prajapati MD Unavailable [phone] Sherwin Venegas MD Unavailable [phone] Stalin Escalante MD Unavailable [phone] Jayleen Negron PA-C Unavailable [phone] Scott Tapia MD Primary Care Provider [phone] Allergies Active Allergy Reactions Criticality Noted Date [...] a week 1 07/29/19 18 Active B Vbjsgqx-Q-Ylfzm Acid (SUPER B COMPLEX/FA/VIT C) TabIndications:no t [...] (06/19/2020): Added automatically from request for surgery [id number] Colonic mass 2020 Overview (2020): Added automatically from request for surgery [id number] Low back pain 03/25/2018 Hyperlipidemia 03/24/2012 Resolved [...] Vaccine ( - season) 2024 PHQ-2 (Physician Kake) 05/12/2024 10/03/2023 DTaP, Tdap and Td Vaccines [...] this topic Medical Devices Implanted Type Area Director Of Search Engine Marketing Device Identifier Shelf Expiration Date Model / Serial / Lot Screw Screw Spine Lumbar Composix Kugel Bard Small Oval 8 X 12 - [id number] Implanted:Qty : 1 on 07/03/2020 by Bill Cornejo MD at [facility] Right: Abdomen [employer] - DIV C R [employer]ARD [employer] [id number] 01/06/2021 [id number] / / [id number] Procedures Procedure Name Priority Date/Time Associated Diagnosis Comments COLONOSCOPY GENERIC (SCAN ORDER) Routine 04/05/2020 from Last 3 Months or Most Recently Relevant to Health Maintenance Results * COLONOSCOPY (04/05/2020) us Documents Scanned SCANNING Final Result [facility] from Last 3 Months or Most Recently Relevant to Health Maintenance Insurance AETNA [facility] Care Teams Tool Sharpener Relationship Specialty Start Date End Date Scott Tapia MD [address] [facility] [address] [place] [id number] PCP - General INTERNAL MEDICINE 11/28/23 Juliano Prajapati MD SURGERY 03/20/18 Sherwin Venegas MD [address] [place] [address] Referring Physician OTOLARYNGOLOGY 03/20/18 Stalin Escalante MD [address] [place] [address] PRINT COLOR OPERATOR 03/20/18 Jayleen Negron, ALEXC [address] [place] [address] PHYSICIAN GLUE MILL OPERATOR 03/25/18 Dr. Tommie Perez GASTROENTEROLOGY 03/20/18
--- OUTSIDE RECORDS SUMMARY | 2024-09-27 18:51 | XMS_ITS | Referral Summary ---
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
--- OUTSIDE RECORDS SUMMARY | 2024-09-27 18:51 | XMS_ITS | Encounter Summary ---
Author Organization [facility] Address [address] [place] [address] Care Team Providers Care Power Plant Technician Name Role Phone Unavailable Primary Care Provider Unavailabl e Encounter Details Date Type Department Care Team (Late st Contact Info) Description 01/01/2022 Lab Requisition [facility] Lab [address] [facility] [address], [place]), [place] [phone] Ashvin Smith MD [address] [place] [address] Social History Tobacco Use Types Packs/Day Years Used Date Smoking Tobacco: Never Alcohol Use Standard Drinks/Week Comments Yes 0 (1 standard drink = 0.6 oz pur e alcohol) Socially Sex and Gender Information Value Date Recorded Sex Assigned at Not on file Legal Sex Male 9:12 AM PRINT PRODUCTION ASSOCIATE Gender Identity Not on file Sexual Orientation [...] AM CDT) Case Report Dermatopathology Report Case: [id number] Authorizing Provider: Ashvin Smith MD Collected: 12/28/2021 03:33 AM Ordering Location: [facility] Lab Received: 01/01/2022 06:44 AM Pathologist: Melissa Goldman MD Specimen: Skin, left post neck 2 4:46 PM CDT DERMATOPATHOLOGY LABORATORY Final Diagnosis Specimen A. 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 Path#[id number] 2 4:46 PM CDT DERMATOPATHOLOGY LABORATORY Gross [...] characteristic determined by the Dermatopathology Laboratory at [facility], directed by Dr. Yasir Bond. These tests need not be, and therefore are not, approved by the [place] Food and Drug Administration. The tests are used for clinical purposes. Billing Codes Specimen Charges Stain Charges 43310 1 2 4:46 PM CDT DERMATOPATHOLOGY LABORATORY Embedded Images 2 4:46 PM CDT DERMATOPATHOLOGY LABORATORY Pathology/Cytolo gy TISSUE SPECIMEN FROM SKIN / Unknown 12/28/2021 3:33 AM CDT 01/01/2022 6:44 AM CDT us Ashvin Smith MD LAB - PATHOLOGY/CYTOLOGY ORDER BEBETO Final Result DERMATOPATHOLOGY LABORATORY [facility] - Department of Dermatology [facility] Specialized Medicine [facility] [facility] ([place], [place]), [address]rd Floor [address] [phone] documented in this encounter Visit Diagnoses Not on filedocumented in this encounter
--- OUTSIDE RECORDS SUMMARY | 2024-09-27 18:51 | XMS_ITS | Encounter Summary ---
Author Organization [facility] Address [address] [place] [address] Care Team Providers Care House Mover Name Role Phone Conner Carter MD Primary Care Provider [phone] Juliano Prajapati MD Unavailable [phone] Sherwin Venegas MD Unavailable [phone] Stalin Escalante MD Unavailable [phone] Jayleen Negron PA-C Unavailable [phone] Peter Holt DO Primary Care Provider Glo Damon [facility] Primary Care Provid er Scott Tapia MD Primary Care Provider [phone] Encounter Details Date Type Department Care Team (Late st Contact Info) Description 03/17/2020 Prep for Procedure [facility] [address] [id number] Conner Carter MD [address] [facility] [address] [place] [address] Social History Tobacco Use Types Packs/Day Years [...] COVID-19? No / Unsure 03/17/2020 2:16 PM DIRECTOR OF VOCATIONAL GUIDANCE documented as of this encounter Plan of Treatment Not on file documented as of this encounter Results * PRE-SURGICAL/PRE-PROCEDURE CORONAVIRUS (COVID 19) (03/21/2020 9:23 AM DIRECTOR OF VOCATIONAL GUIDANCE) CORONAVIRUS SARS COV 2 PCR (RESP) NOT DETECTED NOT DETECTED 03/22/2020 5:55 PM DIRECTOR OF VOCATIONAL GUIDANCE [facility] Comment: A Not Detected (negative) test result [...] providers and patients using the following websites: https://www.[employer]/home/Covid-19/HCP/NAAT/fact-sheet2 https://www.[employer]/home/Covid-19/Patients/NAAT/ fact-sheet2 This test has been authorized by the FDA under an Emergency Use Authorization (EUA) for use by authorized laboratories. Due to the current public health emergency, [facility] is receiving a high volume of samples [...] about COVID-19 can be found at the [facility] website: www.[employer]/Covid19. Test performed at [facility] [address] [place] [phone] Director: JOHN JOE DO,MPH FIRST TEST YES 03/21/2020 9:24 AM DIRECTOR OF VOCATIONAL GUIDANCE [facility] EMPLOYED IN HEALTHCARE NO 03/21/2020 9:24 AM [facility] SYMPTOMATIC DEFINED BY CDC NO 03/21/2020 9:24 AM DIRECTOR OF VOCATIONAL GUIDANCE [facility] DATE OF SYMPTOM ONSET UNKNOWN 03/21/2020 9:33 AM DIRECTOR OF VOCATIONAL GUIDANCE [facility] HOSPITALIZATION STATUS NO 03/21/2020 9:24 AM DIRECTOR OF VOCATIONAL GUIDANCE [facility] PATIENT IN ICU NO 03/21/2020 9:24 AM DIRECTOR OF VOCATIONAL GUIDANCE [facility] RESIDENT OF [facility] NO 03/21/2020 9:24 AM [facility] NOT 03/21/2020 9:33 AM DIRECTOR OF VOCATIONAL GUIDANCE [facility] PATIENT'S RACE WHITE OR 03/21/2020 9:24 AM DIRECTOR OF VOCATIONAL GUIDANCE [facility] ETHNICITY NONHISPANIC 03/21/2020 9:24 AM DIRECTOR OF VOCATIONAL GUIDANCE [facility] SOURCE (QST) NASOPHARYNGEAL SWAB 03/21/2020 9:24 AM [facility] NASOPHARYNGEAL SWAB / Unknown 03/21/2020 9:23 AM DIRECTOR OF VOCATIONAL GUIDANCE Conner Carter MD MICROBIOLOGY - GENERAL ORDERA BLES Final Result [facility] [address] [place] [address], [facility] [address] [place] [address], documented in this encounter Visit Diagnoses Diagnosis Pre-op testing- Primary Preoperative examination, unspecified documented in this encounter Additional Health Concerns Infection Onset Date Last Indicated Resolved Time COVID-19 Rule Out 03/21/2020 03/21/2020 03/22/2020 5:56 PM DIRECTOR OF VOCATIONAL GUIDANCE COVID-19 Rule Out 04/02/2020 04/02/2020 04/03/2020 1:46 PM DIRECTOR OF VOCATIONAL GUIDANCE COVID-19 Rule Out 06/30/2020 06/30/2020 07/01/2020 9:21 AM DIRECTOR OF VOCATIONAL GUIDANCE documented as of this encounter Care Teams House Mover Relationship Specialty Start Date End Date Conner Carter MD PCP - General 06/25/16 10/01/21 Peter Holt DO [address] [place] [address] PCP - General FAMILY PRACTICE 10/02/21 08/17/23 Glo Damon, MONOLOGIST- [address] [place] [address] PCP - General Nurse Practitioner Family 08/18/2311/09 Scott Tapia MD [address] [facility] [address] [place] [address] PCP - General INTERNAL MEDICINE 11/28/23 Juliano Prajapati MD SURGERY 03/20/18 Sherwin Venegas MD [address] [place], [place] [id number] Referring Physician OTOLARYNGOLOGY 03/20/18 Stalin Escalante MD [address] [place] [address] DENTAL TECHNOLOGIST 03/20/18 Jayleen Negron, PAThiernoC [address] [place] [address] PHYSICIAN DISBURSEMENT CLERK 03/25/18 Dr. Tommie Perez GASTROENTEROLOGY 03/20/18 documented as of this encounter
--- OUTSIDE RECORDS SUMMARY | 2024-09-27 18:51 | XMS_ITS | Encounter Summary ---
Author Organization [facility] Address [address] [place] [address] Care Team Providers Care Investment Professional Name Role Phone Conner Carter MD Primary Care Provider [phone] Juliano Prajapati MD Unavailable [phone] Sherwin Venegas MD Unavailable [phone] Stalin Escalante MD Unavailable [phone] Jayleen Negron PA-C Unavailable [phone] Peter Holt DO Primary Care Provider Glo Damon [facility] Primary Care Provid er Scott Tapia MD Primary Care Provider [phone] Encounter Details Date Type Department Care Team (Late st Contact Info) Description 03/18/2013 Abstract [facility] CONVERSION [address] [place] [address] , Generic Conversion, Social History Tobacco Use [...] Rule Out 03/21/2020 03/21/2020 03/22/2020 5:56 PM SPECIAL EDUCATION TEACHERS COVID-19 Rule Out 04/02/2020 04/02/2020 04/03/2020 1:46 PM SPECIAL EDUCATION TEACHERS COVID-19 Rule Out 06/30/2020 06/30/2020 07/01/2020 9:21 AM SPECIAL EDUCATION TEACHERS documented as of this encounter Care Teams Investment Professional Relationship Specialty Start Date End Date Conner Carter MD PCP - General 06/25/16 10/01/21 Peter Holt DO [address] [place] [address] PCP - General FAMILY PRACTICE 10/02/21 08/17/23 Glo Damon, [facility]- [address] [place] [address] PCP - General Nurse Practitioner Family 08/18/2311/09 Scott Tapia MD [address] [facility] [address] [place] [address] PCP - General INTERNAL MEDICINE 11/28/23 Juliano Prajapati MD SURGERY 03/20/18 Sherwin Venegas MD [address] [place], [place] [phone] Referring Physician OTOLARYNGOLOGY 03/20/18 Stalin Escalante MD [address] [place] [address] DIETICIAN 03/20/18 Jayleen Negron, ALEXC [address] [place] [address] PHYSICIAN CISCO UNIFIED COMMUNICATIONS ENGINEER 03/25/18 Dr. Tommie Perez GASTROENTEROLOGY 03/20/18 documented as of this encounter
--- OUTSIDE RECORDS SUMMARY | 2024-09-27 18:51 | XMS_ITS | Clinical Summary ---
Author Organization [facility] Address [address] [place] [address] Phone Care Team Providers Care Record Cutter Name Role Phone Not Found, Stl Primary [...] . Active fluticasone propionate (FLONASE) 50 mcg/spray [place], Suspension nasal inhaler Administer 2 Sprays in each nostril 2 times daily. Active GARLIC ORAL Take 600 mg by mouth 2 times daily. Active Green Tea Lead Extract (GREEN TEA) Capsule Take 500 mg [...] tablet Take 50 mcg by mouth daily director of early childhood. Active TESTOSTERONE IM Inject 2.5 mL by [...] series) 2035 Medical Devices Implanted Type Area Carpet Mechanic Device Identifier Shelf Expiration Date Model / Serial / Lot 10 X 32mm El Elevate Implanted:Qty: 1 on 11/23/2018 by Vaughn Urbano MD at [facility] Cage Right: Spine Lumbar [employer]- SOFAMOR DANEK 10/13/2022 [id number] / / [id number] Description:ENTERED BY RN Nohemi [id number] 10 X 32mm Elevate Implanted:Qty: 1 on 11/23/2018 by Vaughn Urbano MD at [facility] Cage Right: Spine Lumbar [employer] SOFAMOR DANEK 12/11/2023 [id number] / / [id number] Description:ENTERED BY RN Nohemi [id number] Antonino 75mm Solera Sextant Implanted:Qty: 2 on 11/23/2018 by Vaughn Urbano MD at [facility] Antonino Right: Spine Lumbar [employer] SOFAMOR DANEK [id number] / / Description:ENTERED BY DANYA Song [id number] Screw Solera Karolina Ma 7.5x40mm [id number] - [id number] Implanted:Qty: 2 on 11/23/2018 by Vaughn Urbano MD at [facility] Screw Right: Spine Lumbar [employer]- SOFAMOR DANEK [id number] / / [id number] Screw Sextant Break-Off [id number] - [id number] Implanted:Qty: 6 on 11/23/2018 by Vaughn Urbano MD at [facility] Screw Right: Spine Lumbar [employer]- SOFAMOR DANEK [id number] / / [id number] Screw Solera Sextant 7.5 X 45mm Implanted:Qty: 4 on 11/23/2018 by Vaughn Urbano MD at [facility] Screw Right: Spine Lumbar [employer]- SOFAMOR DANEK [id number] / / Description:ENTERED BY DANYA Song [id number] [place] Dbm 8x10cm [id number] - [id number] Implanted:Qty: 1 on 11/23/2018 by Vaughn Urbano MD at [facility] Tissue Right: Spine Lumbar [employer] 08/05/2021 [id number] / [id number] / Description:REQ#[id number] Insurance RX [facility] Advance Directives For more information, please contact: [phone] Documents on File Type Date Recorded 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
--- OUTSIDE RECORDS SUMMARY | 2024-09-27 18:53 | XMS_ITS | Continuity of Care Document ---
Author Organization [facility] Address [address] [place] [address] Phone Care Team Providers Care Balance Engineer Name Role Phone Sheldon Nunez MD Unavailable Unavailable Procedures Procedure Date X-RAY EXAM OF LUMBAR SPINE, A/P & LAT Ju Advance Directives Directive Yes / No Effective Date File Name No Information Encounters Encounter Description Practice Location Reason(s) For Visit Diagnoses Date Provider Providers Copied on Encounter [facility], [address], [place], [place], [address], [place] tel:[phone] [facility] No Information Enrique Chung. [address] , [place], [place], [address], [place]. tel:[phone] Referring Provider: Vaughn Urbano MD, [address] [place], [address]. tel:[phone] Family History Family Member Type Diagnosis Age At Onset No Information Payers Payer name Insurance type Covered libertarian ID Authoriza ticonner(s) [facility] [id number] Social History Type Description Quantity Date Captured [...]
--- OUTSIDE RECORDS SUMMARY | 2024-09-27 18:53 | XMS_ITS | Continuity of Care Document ---
Author Organization [facility] Address [address] [place] [address] Phone Care Team Providers Care Care Navigator Name Role Phone Seth Leo MD Unavailable Unavailable Allergies, Adverse Reactions, Alerts Substance Reaction Status Criticality Sdrfqxd-AUC-MuA Reductase Inhibitors Acti ve No Information Penicillins [...] Providers Copied on Encounter [facility], [address] [address], [place], [address], tel:[phone] [facility] Status post surgeryBicipital tendinitis, left shoulder Jul-0 5- 4 Ahmet Seth. [address], [place], [place], [id number] , [place]. tel: [phone] [facility], [address], [place], [address], [place] tel:[phone] [facility] Bicipital tendinitis, left shoulderStatus post surgery Fe-0 6- 4 Ahmet Seth. [address], [place], [place], [id number] , [place]. tel: [phone] [facility], [address], [place], [address], [place] tel:[phone] [facility] Bicipital tendinitis, left shoulder Lee-2 3-202 4 Ahmet Seth. [address], [place], [place], [address] , [place]. tel: [phone] [facility], [address] [facility] [address], [place], [address], [place] tel:[phone] [facility] Biceps tendinitis of left upper extremity 3 Ahmet Ann. [address], [place], [place], [id number] , [place]. tel: [phone] OFFICE/OUTPA TIENT VISIT EST [facility], [address] [facility] [address], [place], [address], [place] tel:[phone] [facility] Biceps tendinitis of left upper extremityLeft cervical radiculopathy 3 Ahmetdeepa Ann. [address], [place], [place], [id number] , [place]. tel: [phone] OFFICE/OUTPA TIENT VISIT EST [facility], [address] [facility] [address], [place], [address], [place] tel:[phone] [facility] Biceps tendinitis of left upper extremityLeft cervical radiculopathy 3 Nikita Escudeor. [address], [place], [address], [place]. tel: [phone] OFFICE/OUTPA TIENT VISIT NEW [facility], [address] [facility] [address], [place], [address], [place] tel:[phone] [facility] Body mass index [BMI]30.0-30.9, adultBiceps tendinitis of left upper extremity 0- 3 Ahmet Ann. [address], [place], [place], [id number] , [place]. tel: [phone] Family History Family Member Type Diagnosis Age At Onset Mother Problem Hypertension Sister Problem Alive and well Father Problem Hypertension Father Problem Cardiovascular disease Mother Problem Diabetes mellitus Father Problem Diabetes mellitus Payers Payer name Insurance type Covered libertarian ID Authoriza tion(s) A[employer]na Choice POS II E2 [id number] Social History Type Description Quantity Date Captured [...] radiculopathy) ordered Referral Referred To: Jeffy Peñaloza [address] [place], [phone] Ordered: Referrals: Allopathic & Osteopathic Physicians : [...]
[2024-09-27 18:56] VITALS: BP 165/83; PULSE 70; RESP 18; TEMP 36.6; O2SAT 98
== END 2024-09-27 19:14 | disposition home or self-care (01) ==
PROVIDERS: Emergency Provider Nurse Practitioner Family; PCP Internal Medicine
DX: L03.114 Cellulitis of left upper limb (principal)
CPT/HCPCS: 87070; 87075; 87181; 87205; 99213; G0463